=== PATIENT | female | born 1960 | race Caucasian/White ===

== ENCOUNTER 2019-04-07 07:59 | Outpatient (CLI) | payer MEDICARE, OTHER, SELFPAY ==
--- NOTE | 2019-04-07 08:19 | MM_ITS ---
WS: [id number] BILATERAL DIGITAL SCREENING MAMMOGRAM WITH CAD CLINICAL INFORMATION: SCREENING HISTORY: Screening mammogram. No current complaints. COMPARISON: February 20, 2018 TECHNIQUE: Bilateral CC and MLO views. FINDINGS: Fatty-replaced breasts bilaterally. Stable 11 mm intramammary lymph node upper outer right breast wit h a fatty hilum. No suspicious focal mass, asymmetry, calcifications, or architectural distortion. No evidence of malignancy. MM/[place] [id number] IMPRESSION: BI-RADS: 2-Benign FOLLOW UP: 1 Year Follow-up Recommend return to annual screening mammography.
== END 2019-04-07 08:00 | disposition home or self-care (01) ==
LOC: RADSHAW 08:04
PROVIDERS: Family Provider Family Medicine; Visit Provider Family Medicine
DX: Z12.31 Encounter for screening mammogram for malignant neoplasm of breast (principal)
CPT/HCPCS: 77067

== ENCOUNTER 2019-09-07 18:01 | Emergency (ER) | payer MEDICARE, OTHER, SELFPAY ==
[2019-09-07] VITALS (18 sets, daily range): BP systolic 145–183; BP diastolic 82–97; PULSE 110; RESP 18; TEMP 37; O2SAT 93–96; BMI 39.4
--- NOTE | 2019-09-07 18:05 | CTR_ITS ---
PROCEDURE INFORMATION: Exam: CT Cervical Spine Without Contrast Exam date and time: 09/07/2019 6:40 PM Age: 59 years old Clinical indication: Injury or trauma; Initial encounter; Blunt trauma; Patient HX: Pain after 5ft fall onto concrete TECHNIQUE: Imaging protocol: Computed tomography images of the cervical spine without contrast. Radiation optimization: All CT scans at this facility use at least one of these dose optimization techniques: automated exposure control; mA and/or kV adjustment per patient size (includes targeted exams where dose is matched to clinical indication); or iterative reconstruction. COMPARISON: CR Cervical Spine Flex/Ext [id number] 08/04/2015 10:10 AM FINDINGS: The vertebral bodies are normally aligned. There is no evidence of fracture or subluxation. The vertebral bodies are of normal height. There is disc space narrowing at C6-C7. The remaining disc spaces are well maintained. The prevertebral soft tissues and the predental space are unremarkable. There are mild degenerative changes of the facet joints and uncovertebral joints. There is no significant central stenosis. There is no evidence for epidural hematoma. The lung apices are clear. Carotid calcifications are noted. CT/CT cervical spin wo con* [id number] IMPRESSION: There is no evidence of fracture or subluxation. Radiation Dose CTDIVOL = (mGy): DLP = 620.89 (mGy-cm)
--- NOTE | 2019-09-07 18:05 | XR_ITS ---
WS: [id number] LEFT SHOULDER: 3 VIEW(S) TECHNIQUE: Internal and external rotation with Y view. HISTORY: injury COMPARISON: 06/30/2013 Seen best on the Y view is a double cortical line. There is mild osteophytic ridging around the humer al head. Mild narrowing of the AC joint and the glenohumeral joint. XR/XR shoulder LT min 2V* [id number] IMPRESSION: Minimally displaced fracture involving the humeral head.
--- NOTE | 2019-09-07 18:05 | CTR_ITS ---
PROCEDURE INFORMATION: Exam: CT Head Without Contrast Exam date and time: 09/07/2019 6:40 PM Age: 59 years old Clinical indication: Injury or trauma; Initial encounter; Blunt trauma (contusions or hematomas); Without loss of consciousness; Patient HX: L forehead hematoma and pain after 5ft fall onto concrete TECHNIQUE: Imaging protocol: Computed tomography of the head without contrast. Radiation optimization: All CT scans at this facility use at least one of these dose optimization techniques: automated exposure control; mA and/or kV adjustment per patient size (includes targeted exams where dose is matched to clinical indication); or iterative reconstruction. COMPARISON: No relevant prior studies available. FINDINGS: The ventricles, sulci and basilar cisterns are normal for the patient's stated age. There are mild areas of decreased attenuation in the periventricular white matter which is nonspecific but likely relates to small vessel ischemic change. There is no evidence for acute infarct. There is no evidence for mass. There is hemorrhage layering along the falx slightly to the right of midline measuring 4 mm. There also appears to be some hemorrhage layering along the right side of the tentorium. This does not cause any significant mass effect. No intraparenchymal hemorrhage is seen. There is no midline shift. The skull is intact. There is a left frontal scalp hematoma/laceration. The visualized paranasal sinuses are well aerated. There is atherosclerotic change of the cavernous carotid arteries. CT/CT head wo con* [id number] IMPRESSION: 1. Subdural hemorrhage layering along the falx with maximal thickness of 4 mm. There is also some subdural hemorrhage layering along the right side of the tentorium. This does not cause any significant mass effect. 2. No intraparenchymal hemorrhage. 3. Left frontal scalp hematoma/laceration. Radiation Dose CTDIVOL = (mGy): DLP = 915.96 (mGy-cm)
--- NOTE | 2019-09-07 18:05 | XR_ITS ---
WS: [id number] RIGHT HAND: 3 VIEW(S) TECHNIQUE: PA, oblique and lateral. HISTORY: injury COMPARISON: None available. No acute fracture or dislocation. No soft tissue or bone abnormality. Mild interphalangeal joint space narrowing. XR/XR hand RT min 3V* [id number] IMPRESSION: No acute fracture.
--- NOTE | 2019-09-07 18:08 | W.ED.FALL ---
HPI - Fall General: Chief Complaint: Fall Stated Complaint: fall from 5 feet Time Seen by Provider: 09/07/19 18:05 Source: patient and EMS Mode of arrival: EMS Limitations: no limitations History of Present Illness: HPI Narrative: 59-year-old female who was at a pool and states she was climbing up a ladder and fell roughly 4 feet onto concrete. She hit her head along with her left shoulder and knee. She complains of head neck pain along with left shoulder pain. She denies any loss of consciousness. She states her pain is a 4 out of 10. complaint: fall Onset (ago): minute(s) Fall from: from height (distance) Fall witnessed: yes, by family Place fall occurred: home Loss of consciousness: None Prolonged down time: no Symptoms prior to fall: none Context: tripped/slipped Location of injury: head and neck Associated symptoms-after fall: Reports headache(s) and neck pain; Denies abdominal pain or chest pain Review of Systems Const: Denies: fever(s), chills, body aches or change in appetite Eyes: Denies: blurry vision or eye discomfort ENMT: Denies: throat pain or dental pain Card: Denies: chest pain Resp: Denies: dyspnea GI: Denies: abdominal pain, nausea, vomiting or diarrhea : Denies: dysuria Musc: Reports: neck pain; Denies: back pain Skin/Breast: Denies: rash Neuro: Reports: headache(s) Psych: Denies: depression Kavon/Lymph: Denies: easy bruising All/Imm: Denies: urticaria PFSH ED PFSH: Medical History Anxiety Arthritis Depression Diabetes Elevation of cardiac enzymes Hypercholesterolemia Hypertension Obesity Palpitations with regular cardiac rhythm Precordial chest pain Surgical History H/O left knee surgery History of appendectomy History of endometrial ablation S/P dilatation and curettage Family History Other Diabetes Family history of premature coronary artery disease Hyperlipidemia Hypertension Social History Smoking and tobacco status: former smoker Alcohol intake: never Physical Exam Const: COMMON NORMALS: no acute distress, patient oriented x3 and healthy appearing HENMT: COMMON NORMALS: normocephalic HEAD & SCALP: normocephalic OTHER: Abrasion to left side of face and head. Eye: COMMON NORMALS: Equal, round and reactive pupils present and EOMs intact bilaterally PUPIL: Yes Equal, round and reactive pupils present Neck/C-Spine: COMMON NORMALS: full ROM and supple Chest: COMMONS NORMALS: normal inspection of the chest and normal palpation of entire chest wall Resp: COMMON NORMALS: normal respiratory effort, No retractions, No use of accessory muscles and clear to auscultation bilaterally AUSCULTATION: clear to auscultation bilaterally Cardio: COMMON NORMALS: regular rate, regular rhythm and No murmurs present (Cardio) RATE: regular rate RHYTHM: regular rhythm GI: COMMON NORMALS: Normal to inspection, nondistended, normoactive bowel sounds present, Soft to palpation, non-tender and no masses PALPATION: Yes Soft to palpation Extremity: COMMON NORMALS: normal to inspection and full ROM Neuro: COMMON NORMALS: patient oriented x3, moves all extremities and no focal motor deficits Psych: COMMON NORMALS: mental status grossly normal, Normal thought process present and cooperative THOUGHT PROCESS: Normal thought process present Skin: COMMON NORMALS: no rashes or lesions noted and no wounds GENERAL SKIN EXAM: no rashes or lesions noted Course Vital Signs: Vital signs: Vital Signs Temperature 98.6 F 09/07/19 18:07 Pulse Rate 110 H 09/07/19 18:07 Respiratory Rate 18 09/07/19 18:07 Blood Pressure 183/93 09/07/19 18:07 Pulse Oximetry 94 09/07/19 18:15 MDM - Fall MDM Narrative: Medical decision making narrative: Patient presents here with a subdural hemorrhage from a fall. Patient here is awake alert and has a GCS of 15. She has no other signs of injuries. I spoke to neurosurgeon Dr. Sanders at [facility] and will transfer there for higher level of care as we do not have neurosurgery on at this time. Patient has been stable while in the ER. Imaging Data^: CT Head: Radiologist's impression: [address] [address] [address] Scan Report Signed Patient: Sharon Villalpando Unit #: [id number] : 1960 [id number] Age/Sex: 59 / F ADM Date: 09/07/19 Loc: ER Room/Bed: Attending Dr: Ordering Provider/Ordering MD: Ly Whaley MD Date of Service: 09/07/19 Procedure(s): CT head wo con* [id number] Accession Number(s): [id number] Report Number: [id number] PROCEDURE INFORMATION: Exam: CT Head Without Contrast Exam date and time: 09/07/2019 6:40 PM Age: 59 years old Clinical indication: Injury or trauma; Initial encounter; Blunt trauma (contusions or hematomas); Without loss of consciousness; Patient HX: L forehead hematoma and pain after 5ft fall onto concrete TECHNIQUE: Imaging protocol: Computed tomography of the head without contrast. Radiation optimization: All CT scans at this facility use at least one of these dose optimization techniques: automated exposure control; mA and/or kV adjustment per patient size (includes targeted exams where dose is matched to clinical indication); or iterative reconstruction. COMPARISON: No relevant prior studies available. FINDINGS: The ventricles, sulci and basilar cisterns are normal for the patient's stated age. There are mild areas of decreased attenuation in the periventricular white matter which is nonspecific but likely relates to small vessel ischemic change. There is no evidence for acute infarct. There is no evidence for mass. There is hemorrhage layering along the falx slightly to the right of midline measuring 4 mm. There also appears to be some hemorrhage layering along the right side of the tentorium. This does not cause any significant mass effect. No intraparenchymal hemorrhage is seen. There is no midline shift. The skull is intact. There is a left frontal scalp hematoma/laceration. The visualized paranasal sinuses are well aerated. There is atherosclerotic change of the cavernous carotid arteries. CT/CT head wo con* [id number] IMPRESSION: 1. Subdural hemorrhage layering along the falx with maximal thickness of 4 mm. There is also some subdural hemorrhage layering along the right side of the tentorium. This does not cause any significant mass effect. 2. No intraparenchymal hemorrhage. 3. Left frontal scalp hematoma/laceration. ct c spine: Radiologist's impression: [place] [address] [address] [address] Scan Report Signed Patient: Sharon Villalpando Unit #: [id number] : 1960 Age/Sex: 59 / F ADM Date: 09/07/19 Loc: ER Room/Bed: Attending Dr: Ordering Provider/Ordering MD: Ly Whaley MD Date of Service: 09/07/19 Procedure(s): CT cervical spin wo con* [id number] Accession Number(s): [id number] Report Number: [id number] PROCEDURE INFORMATION: Exam: CT Cervical Spine Without Contrast Exam date and time: 09/07/2019 6:40 PM Age: 59 years old Clinical indication: Injury or trauma; Initial encounter; Blunt trauma; Patient HX: Pain after 5ft fall onto concrete TECHNIQUE: Imaging protocol: Computed tomography images of the cervical spine without contrast. Radiation optimization: All CT scans at this facility use at least one of these dose optimization techniques: automated exposure control; mA and/or kV adjustment per patient size (includes targeted exams where dose is matched to clinical indication); or iterative reconstruction. COMPARISON: CR Cervical Spine Flex/Ext [id number] 08/04/2015 10:10 AM FINDINGS: The vertebral bodies are normally aligned. There is no evidence of fracture or subluxation. The vertebral bodies are of normal height. There is disc space narrowing at C6-C7. The remaining disc spaces are well maintained. The prevertebral soft tissues and the predental space are unremarkable. There are mild degenerative changes of the facet joints and uncovertebral joints. There is no significant central stenosis. There is no evidence for epidural hematoma. The lung apices are clear. Carotid calcifications are noted. CT/CT cervical spin wo con* [id number] IMPRESSION: There is no evidence of fracture or subluxation. xr r hand: Attestation: I personally reviewed and interpreted this imaging study as follows: My impression: no acute abnormality xr shoulder L: Attestation: I personally reviewed and interpreted this imaging study as follows: My impression: no acute abnormality Critical Care Time Critical Care Time: Critical Care Time: Yes Total Critical Care Time: 36 Attestation: This case had a high probability of a clinically significant, sudden, or life threatening deterioration of this patient's condition which required my full and direct attention, intervention and personal management. Discharge Plan Discharge Patient Disposition: Xfer Other Clinical Impression: Subdural hemorrhage Condition: Stable Referrals: Pritesh Ritter DO [Primary Care Provider] - Interventions: ED Charges Last Done: 09/07/19 18:14 Coding Level of Care Code ED Gelatin Dynamite Packing Operator for Chg Fwd Exam Comprehensive
[2019-09-07] MEDS: HYDROcodone-acetaminophen 5-325 mg Tablet 1 TAB PO (19:39)
[2019-09-07] MEDS: labetalol 5 mg/mL SDV 20mL 10 MG IVP (19:44)
[2019-09-07 19:56] LABS: Basophils # 0.1 10^3/uL (0.0-0.1); Basophils % 0.5 %; Eosinophils # 0.3 10^3/uL (0.0-0.8); Eosinophils % 2.2 %; Hematocrit 41.3 % (37.0-47.0); Hemoglobin 13.6 g/dL (11.5-15.3); Lymphocytes % 15.3 %; Mean Corpuscular HGB Conc 32.9 g/dL (30.0-36.0); Mean Corpuscular Hemoglobin 29.8 pg (28.0-34.0); Mean Corpuscular Volume 90.4 fL (81-99); Mean Platelet Volume 9.4 fL (7.4-10.4); Monocytes # 0.6 10^3/uL (0.2-0.9); Monocytes % 4.7 %; Neutrophils # 9.8 10^3/uL (1.8-7.7); Neutrophils % 76.3 %; Nucleated Red Blood Cells % 0 %; Platelet Count 341 10^3/cmm (130-400); Red Blood Count 4.57 10^6/uL (4.1-5.3); Red Cell Distribution Width 12.4 % (12.1-15.1); White Blood Count 12.9 10^3/uL (4.0-10.0)
[2019-09-07 20:01] LABS: INR 0.86 (0.8-1.2)
[2019-09-07 20:07] LABS: Alanine Aminotransferase 24 U/L (0-33); Albumin Level 4.3 g/dL (3.5-5.2); Alkaline Phosphatase 57 IU/L (35-105); Anion Gap 19.1 (5-19); Aspartate Amino Transferase 22 U/L (0-32); Blood Urea Nitrogen 11 mg/dL (6-20); Calcium 9.9 mg/dL (8.5-10.5); Carbon Dioxide 23 mmol/L (22-29); Chloride 96 mmol/L (98-107); Creatinine Clr Calc Pharmacy 101.8412; Globulin 3.3 g/dL (1.3-4.6); Glomerular Filtration Rate 85.6 mL/min (90-130); Glucose 245 mg/dL (65-115); Osmolality Calculated 282 mOsm/kg (285-295); Potassium 4.1 mmol/L (3.5-5.1); Sodium 134 mmol/L (136-145); Total Bilirubin 0.2 mg/dL (0.15-1.2); Total Protein 7.6 g/dL (6.6-8.7)
--- NOTE | 2019-09-07 22:30 | PC.NURSE ---
EMS on site to assume care and transport to [facility].
== END 2019-09-07 22:30 | disposition other institution (70) ==
PROVIDERS: Emergency Provider Emergency Medicine; Family Provider Family Medicine; PCP Family Medicine
DX: S06.5X9A Traumatic subdural hemorrhage with loss of consciousness of unspecified duration, initial encounter (principal); W11.XXXA Fall on and from ladder, initial encounter; E11.9 Type 2 diabetes mellitus without complications; I10 Essential (primary) hypertension; Z87.891 Personal history of nicotine dependence
CPT/HCPCS: 12345; 36415; 70450; 72125; 73030; 73130; 80053; 85025; 85610; 96374; 99282; 99285; J3490

== ENCOUNTER 2019-09-25 13:28 | Outpatient (CLI) | payer MEDICARE, OTHER, SELFPAY ==
--- NOTE | 2019-09-25 13:36 | CT_ITS ---
WS: [id number] CT HEAD TECHNIQUE: Noncontrast CT of the head obtained from the skullbase to the vertex. CLINICAL INFORMATION: POST TRAUMATIC SUBDURAL HEMATOMA WITHOUT LOSS OF CONSCIOUSNE COMPARISON: September 07, 2019 DLP: 925.[address] scans at [facility] use at least one of these dose optimization techniques: automat ed exposure control; mA and/or kV adjustment per patient size (includes targeted exams where dose is matched to clinical indication); or iterative reconstruction. FINDINGS: Previously described subdural hematoma along the falx has resolved. Subdural hematoma along the right tentorium has also essentially resolved. No evidence of new or progressive hemorrhage. No hydrocepha yordan. Mild small vessel changes. Mild parenchymal volume loss. Paranasal sinuses and mastoid air cells are well aerated. CT/CT head wo con* [id number] IMPRESSION: 1. No evidence of intracranial hemorrhage or mass effect. 2. Previously described subdural hematoma along the falx and right tentorium h as resolved. 3. No acute intracranial findings.
== END 2019-09-25 13:29 | disposition home or self-care (01) ==
LOC: RADWPI 13:31
PROVIDERS: Family Provider Family Medicine; PCP Family Medicine; Visit Provider Nurse Practitioner Family
DX: S06.5X0A Traumatic subdural hemorrhage without loss of consciousness, initial encounter (principal); G44.319 Acute post-traumatic headache, not intractable; X58.XXXA Exposure to other specified factors, initial encounter
CPT/HCPCS: 70450

== ENCOUNTER 2019-09-26 06:43 | Emergency (ER) | payer MEDICARE, OTHER, SELFPAY ==
[2019-09-26] VITALS (43 sets, daily range): BP systolic 129–200; BP diastolic 72–98; PULSE 93–102; RESP 18; TEMP 37.2; O2SAT 94–97; BMI 39.4
--- NOTE | 2019-09-26 06:57 | W.ED.GENADLT ---
HPI - General Adult General: Chief complaint: General Medical Stated complaint: HIGH BP Time Seen by Provider: 09/26/19 06:45 History of Present Illness: HPI narrative: 59-year-old female who comes in complaining of elevated blood pressure felt hot and sweaty she is concerned because she recently had an intracranial hemorrhage she had a subdural after a fall there was no loss of consciousness. She was seen last night for recheck. Subdural hematoma had resolved the original was on September 06. He has no focal neurologic deficits this morning. The only medication [facility] blood pressure is candesartan. Blood pressure when she initially arrives here her blood pressure is down a little bit. Eyes any nausea vomiting or diarrhea no recent illness. Associated symptoms: Deny chest pain, dyspnea, malaise, nausea, rash or vomiting Review of Systems Const: Denies: fever(s), chills, body aches, change in appetite, fatigue or malaise ENMT: Denies: throat pain, ear or mastoid pain, nasal discharge or nasal congestion Card: Denies: chest pain, edema, dyspnea on exertion or orthopnea Resp: Denies: dyspnea, productive cough or non-productive cough GI: Denies: abdominal pain, nausea, vomiting, hematemesis, coffee ground emesis, diarrhea, constipation, bloating, hematochezia or melena : Denies: flank pain, difficulty voiding, dysuria, urinary frequency or urinary urgency Skin/Breast: Denies: rash or pruritus PFS ED PFSH: Medical History Anxiety Arthritis Depression Diabetes Elevation of cardiac enzymes Hypercholesterolemia Hypertension Obesity Palpitations with regular cardiac rhythm Precordial chest pain Surgical History H/O left knee surgery History of appendectomy History of endometrial ablation S/P dilatation and curettage Family History Other Diabetes Family history of premature coronary artery disease Hyperlipidemia Hypertension Social History Smoking and tobacco status: former smoker Alcohol intake: never Physical Exam Const: COMMON NORMALS: no acute distress GENERAL APPEARANCE: cooperative and comfortable ORIENTATION/CONSCIOUSNESS: Yes awake, Yes oriented to person, Yes oriented to place and Yes oriented to time HENMT: COMMON NORMALS: normocephalic, atraumatic, hearing grossly normal bilaterally, external ears normal, EAC's normal, TM's normal bilaterally, Normal nasal mucous membranes and turbinates present, moist oral mucous membranes and oropharynx normal HEAD & SCALP: normocephalic and atraumatic NOSE: Normal nasal mucous membranes and turbinates present EXTERNAL EAR: Yes external ears normal EXTERNAL AUDITORY CANAL: EAC's normal TYMPANIC MEMBRANE: TM's normal bilaterally Eye: COMMON NORMALS: Equal, round and reactive pupils present, EOMs intact bilaterally, conjunctivae normal and no scleral icterus CONJUNCTIVA: Yes conjunctivae normal PUPIL: Yes Equal, round and reactive pupils present Neck/C-Spine: COMMON NORMALS: full ROM, no lymphadenopathy, supple and no JVD Lymph: LYMPHATIC: no lymphadenopathy noted and no lymphedema noted Resp: COMMON NORMALS: normal respiratory effort, No retractions, No use of accessory muscles and clear to auscultation bilaterally AUSCULTATION: clear to auscultation bilaterally Cardio: COMMON NORMALS: no JVD, regular rate, regular rhythm and No murmurs present (Cardio) RATE: regular rate RHYTHM: regular rhythm GI: COMMON NORMALS: Soft to palpation and No hepatosplenomegaly present AUSCULTATION: Yes normoactive bowel sounds PALPATION: Yes Soft to palpation, No Tenderness to palpation present (GI), No Guarding due to palpation present (GI) and Yes No hepatosplenomegaly present Extremity: COMMON NORMALS: normal to inspection, capillary refill normal, no clubbing, cyanosis or edema, no calf tenderness and no pedal edema Neuro: SENSORIUM/ORIENTATION: Yes oriented to person, Yes oriented to place and Yes oriented to time Skin: COMMON NORMALS: no rashes or lesions noted GENERAL SKIN EXAM: no rashes or lesions noted Course Vital Signs: Vital signs: Vital Signs Temperature 98.9 F 09/26/19 06:52 Pulse Rate 93 09/26/19 12:07 Respiratory Rate 18 09/26/19 12:07 Blood Pressure 132/74 09/26/19 12:07 Pulse Oximetry 95 09/26/19 12:07 MDM - General Adult MDM Narrative: Medical decision making narrative: CT of the head unremarkable blood pressure improved. We will add amlodipine. She needs follow-up with primary care doctor the next 2 days return if has any further problems Lab Data: Attestation: I reviewed the patient's lab results. Labs: Lab Results 09/26/19 09/26/19 Range/Units 07:14 07:14 WBC 10.6 H (4.0-10.0) 10^3/ uL RBC 4.50 (4.1-5.3) 10^6/u L Hgb 13.2 (11.5-15.3) g/dL Hct 40.1 (37.0-47.0) % MCV 89.1 (81-99) fL MCH 29.3 (28.0-34.0) pg MCHC 32.9 (30.0-36.0) g/dL RDW 12.2 (12.1-15.1) % Plt Count 348 (130-400) 10^3/c mm MPV 9.5 (7.4-10.4) fL Neut % (Auto) 71.4 % Lymph % (Auto) 19.4 % Bill[place] % (Auto) 5.5 % Eos % (Auto) 2.2 % Baso % (Auto) 0.8 % Neut # (Auto) 7.6 (1.8-7.7) 10^3/u L Lymph # (Auto) 2.1 (0.8-4.8) 10^3/u L Billings # (Auto) 0.6 (0.2-0.9) 10^3/u L Eos # (Auto) 0.2 (0.0-0.8) 10^3/u L Baso # (Auto) 0.1 (0.0-0.1) 10^3/u L Nucleated RBC % (a uto) 0 % Nucleated RBCs # 0.0 /100WBC Sodium 135 L (136-145) mmol/L Potassium 4.5 (3.5-5.1) mmol/L Chloride 95 L (98-107) mmol/L Carbon Dioxide 26 (22-29) mmol/L Anion Gap 18.5 (5-19) BUN 16 (6-20) mg/dL Creatinine 0.7 (0.5-0.9) mg/dL GFR Calculation 85.6 L (90-130) mL/min Glucose 188 H (65-115) mg/dL Calculated Osmolal ity 281 L (285-295) mOsm/k g Calcium 9.5 (8.5-10.5) mg/dL Total Bilirubin 0.3 (0.15-1.2) mg/dL AST 23 (0-32) U/L ALT 25 (0-33) U/L Alkaline Phosphata se 56 (35-105) IU/L Total Protein 7.0 (6.6-8.7) g/dL Albumin 4.4 (3.5-5.2) g/dL Globulin 2.6 (1.3-4.6) g/dL Discharge Plan Discharge Patient Disposition: Home, Self-Care Clinical Impression: Hypertension Condition: Stable Prescriptions: New amlodipine 10 mg tablet 10 mg PO DAILY Qty: 30 RF: 0 No Action atorvastatin [Lipitor] 40 mg tablet 40 mg PO DAILY RF: 0 citalopram 40 mg tablet 40 mg PO DAILY RF: 0 alprazolam 0.25 mg tablet 0.25 mg PO TID PRN (Reason: Anxiety) RF: 0 metformin 500 mg tablet 1,000 mg PO BID RF: 0 candesartan 16 mg tablet 24 mg PO DAILY RF: 0 lysine 500 mg Tablet 500 mg PO DAILY RF: 0 Fioricet 50-300-40 mg Capsule 1 cap PO Q6H PRN (Reason: Headache) RF: 0 Discharge Orders: Discharge Order (Routine); Ordered 09/26/19 Ordered By: Yan Nguyễn Referrals: Pritesh Ritter DO [Primary Care Provider] - Discharge Diet: Usual diet Discharge Activity: Increase activity as tolerated Activity Restrictions/Additional Instructions: Follow-up with Dr. Chavez within 1 week to reevaluate blood pressure with additional medication you were given today Discharge Date/Time: 09/26/19 12:10 Coding Level of Care Code ED Log Cut Off Sawyer for Chg Fwd Exam Comprehensive
--- NOTE | 2019-09-26 06:59 | ECG_ITS ---
[facility] Test Date: 2019-09-26 Pat Name: Sharon Villalpando Department: Room: Gender: Female Eng[employer]: : 1960 Requested By: Yan Rogers Order Number: [id number] Edward MD: Jay Alanis M.D. Measurements Intervals Omega Rate: 88 P: 66 IA: 136 QRS: 37 QRSD: 73 T: 55 QT: 351 QTc: 426 Interpretive Statements SINUS RHYTHM Compared to ECG 02/14/2019 17:21:36 No significant changes Electronically Signed On 09-26-2019 21:51:16 CDT by Jay Alanis M.D. [id number]
[2019-09-26] MEDS: amlodipine 5 mg Tablet PO (07:19)
[2019-09-26] MEDS: hyDRALAzine 20 mg/mL INJ 1 mL 10 MG IVP (07:20)
[2019-09-26 07:22] LABS: Basophils # 0.1 10^3/uL (0.0-0.1); Basophils % 0.8 %; Eosinophils # 0.2 10^3/uL (0.0-0.8); Eosinophils % 2.2 %; Hematocrit 40.1 % (37.0-47.0); Hemoglobin 13.2 g/dL (11.5-15.3); Lymphocytes # 2.1 10^3/uL (0.8-4.8); Lymphocytes % 19.4 %; Mean Corpuscular HGB Conc 32.9 g/dL (30.0-36.0); Mean Corpuscular Hemoglobin 29.3 pg (28.0-34.0); Mean Corpuscular Volume 89.1 fL (81-99); Mean Platelet Volume 9.5 fL (7.4-10.4); Monocytes # 0.6 10^3/uL (0.2-0.9); Monocytes % 5.5 %; Neutrophils # 7.6 10^3/uL (1.8-7.7); Neutrophils % 71.4 %; Nucleated Red Blood Cells % 0 %; Platelet Count 348 10^3/cmm (130-400); Red Cell Distribution Width 12.2 % (12.1-15.1); White Blood Count 10.6 10^3/uL (4.0-10.0)
[2019-09-26 07:41] LABS: Alanine Aminotransferase 25 U/L (0-33); Albumin Level 4.4 g/dL (3.5-5.2); Alkaline Phosphatase 56 IU/L (35-105); Anion Gap 18.5 (5-19); Aspartate Amino Transferase 23 U/L (0-32); Blood Urea Nitrogen 16 mg/dL (6-20); Calcium 9.5 mg/dL (8.5-10.5); Carbon Dioxide 26 mmol/L (22-29); Chloride 95 mmol/L (98-107); Creatinine Clr Calc Pharmacy 101.8412; Globulin 2.6 g/dL (1.3-4.6); Glomerular Filtration Rate 85.6 mL/min (90-130); Glucose 188 mg/dL (65-115); Osmolality Calculated 281 mOsm/kg (285-295); Potassium 4.5 mmol/L (3.5-5.1); Sodium 135 mmol/L (136-145); Total Bilirubin 0.3 mg/dL (0.15-1.2)
== END 2019-09-26 12:10 | disposition home or self-care (01) ==
PROVIDERS: Emergency Provider Family Medicine; PCP Family Medicine
DX: I10 Essential (primary) hypertension (principal); E11.9 Type 2 diabetes mellitus without complications; Z87.891 Personal history of nicotine dependence
CPT/HCPCS: 12345; 80053; 85025; 93005; 96374; 96375; 99284; J0360

== ENCOUNTER → 2020-02-19 08:19 | Outpatient (BNVA) | payer MEDICARE, OTHER, SELFPAY | PROVIDERS: PCP Family Medicine; Visit Provider Specialist | DX: M16.11 Unilateral primary osteoarthritis, right hip (principal) | CPT/HCPCS: 73502 ==

== ENCOUNTER → 2020-03-09 09:27 | Outpatient (BNVA) | payer MEDICARE, OTHER, SELFPAY | PROVIDERS: PCP Family Medicine; Referring Provider Specialist; Visit Provider Anesthesiology Pain Medicine | DX: M54.9 Dorsalgia, unspecified (principal); M16.11 Unilateral primary osteoarthritis, right hip; M24.152 Other articular cartilage disorders, left hip; Z87.891 Personal history of nicotine dependence | CPT/HCPCS: 99205 ==

== ENCOUNTER → 2020-03-22 14:08 | Outpatient (BNVA) | payer MEDICARE, OTHER, SELFPAY | PROVIDERS: PCP Family Medicine; Visit Provider Anesthesiology Pain Medicine | DX: M16.11 Unilateral primary osteoarthritis, right hip (principal); E11.9 Type 2 diabetes mellitus without complications; M54.9 Dorsalgia, unspecified | CPT/HCPCS: 20610; 36416; 77002; 82962; J1030; J3490 ==

== ENCOUNTER 2020-04-08 07:35 | Outpatient (CLI) | payer MEDICARE, OTHER, SELFPAY ==
--- NOTE | 2020-04-08 07:40 | MM_ITS ---
WS: [id number] BILATERAL DIGITAL SCREENING MAMMOGRAM WITH CAD CLINICAL INFORMATION: SCREENING HISTORY: Screening mammogram. No current complaints. COMPARISON: April 07, 2019 TECHNIQUE: Bilateral CC and MLO views. FINDINGS: Fatty-replaced breasts bilaterally. No suspicious focal mass, asymmetry, calcifications, or principal solutions architect ural distortion. No evidence of malignancy. Stable intramammary lymph node upper outer right breast. MM/[place] [id number] IMPRESSION: BI-RADS: 2-Benign FOLLOW UP: 1 Year Follow-up Recommend return to annual screening mammography.
== END 2020-04-08 07:36 | disposition home or self-care (01) ==
LOC: RADSHAW 07:39
PROVIDERS: PCP Family Medicine; Visit Provider Family Medicine
DX: Z12.31 Encounter for screening mammogram for malignant neoplasm of breast (principal)
CPT/HCPCS: 77067

== ENCOUNTER → 2020-04-20 09:04 | Outpatient (BNVA) | payer MEDICARE, OTHER, SELFPAY | PROVIDERS: PCP Family Medicine; Visit Provider Anesthesiology Pain Medicine | DX: M54.9 Dorsalgia, unspecified (principal); M16.11 Unilateral primary osteoarthritis, right hip; M24.152 Other articular cartilage disorders, left hip; M47.816 Spondylosis without myelopathy or radiculopathy, lumbar region | CPT/HCPCS: 99214 ==

== ENCOUNTER → 2020-04-30 13:10 | Outpatient (BNVA) | payer MEDICARE, OTHER, SELFPAY | PROVIDERS: PCP Family Medicine; Visit Provider Anesthesiology Pain Medicine | DX: M47.816 Spondylosis without myelopathy or radiculopathy, lumbar region (principal); M54.9 Dorsalgia, unspecified | CPT/HCPCS: 64493; 64494; 64495; J3490 ==

== ENCOUNTER → 2020-05-26 08:47 | Outpatient (BNVA) | payer MEDICARE, OTHER, SELFPAY | PROVIDERS: PCP Family Medicine; Visit Provider Anesthesiology Pain Medicine | DX: M47.816 Spondylosis without myelopathy or radiculopathy, lumbar region (principal); M54.9 Dorsalgia, unspecified; M16.11 Unilateral primary osteoarthritis, right hip; M24.152 Other articular cartilage disorders, left hip | CPT/HCPCS: 99214 ==

== ENCOUNTER 2020-06-17 13:26 | Outpatient (CLI) | payer MEDICARE, OTHER, SELFPAY ==
--- NOTE | 2020-06-17 14:15 | USCV_ITS ---
Sharon Villalpando Age: 59 Gender: F : 1960 Exam Date: 06/17/2020 13:40 Ordering Phys: Delmi Venegas MD ([email or web address] ([place] Technologist: Ju Piedra Exam Location: [facility] [place] Indication: DIZZINESS Risk Factors: Previous Vascular Surgery: Right Brachial BP: / Left Brachial BP: / Right Left Velocity (cm/s) Spectral Plaque Velocity (cm/s) Spectral Plaque Syst/Diast Broadening Syst/Diast Broadening 94.80/ 22.10 Prox CCA 80.70 / 23.40 83.70/ 24.80 Mid CCA 92.10 / 35.30 59.60/ 18.40 Distal CCA 84.60 / 31.00 67.40/ 21.40 Prox ICA 78.10 / 27.80 65.30/ 16.10 Mid ICA 94.20 / 33.20 62.10/ 16.10 Distal ICA 79.70 / 29.50 107.00 ECA 97.40 0.81 ICA/CCA 1.02 Antegrade Vertebral Antegrade 49.00/ 9.80 cm/s 23.60/ 4.50 cm/s Tri Subclavian Tri 82.20 84.00 FINDINGS Intimal thickening the common carotid arteries bilaterally Minimal plaques in the bifurcations bilaterally Antegrade flow in the vertebral arteries bilaterally Normal Doppler flow velocities in the subclavian arteries bilaterally CONCLUSIONS Minimal plaques in the bifurcations bilaterally. Intimal thickening in the common carotid arteries bilaterally No significant stenosis or unstable plaques based on the above findings Dr Delmi Venegas MD [facility] (Electronically Signed) Final Date: 17 June 2020 20:15 S
== END 2020-06-17 13:27 | disposition home or self-care (01) ==
LOC: US 13:26
PROVIDERS: PCP Family Medicine; Visit Provider Internal Medicine Cardiovascular Disease
DX: R42 Dizziness and giddiness (principal); I65.23 Occlusion and stenosis of bilateral carotid arteries
CPT/HCPCS: 93880

== ENCOUNTER 2021-05-11 09:19 | Outpatient (CLI) | payer MEDICARE, SELFPAY ==
--- NOTE | 2021-05-11 09:32 | MM_ITS ---
WS: [id number] SCREENING DIGITAL MAMMOGRAM WITH CAD HISTORY: SCREENING COMPARISON: 04/08/2020 and 04/07/2019 Bilateral CC and MLO views submitted. Computer aided detection analyzed. Breast composition: The breasts are almost entirely fatty. No suspicious masses, microcalcifications or architectural distortion. Benign lymph node upper outer quadrant RIGHT breast. MM/[place] [id number] IMPRESSION: BI-RADS: 2-Benign FOLLOW UP: 1 Year Follow-up
== END 2021-05-11 09:20 | disposition home or self-care (01) ==
PROVIDERS: PCP Family Medicine; Visit Provider Family Medicine
DX: Z12.31 Encounter for screening mammogram for malignant neoplasm of breast (principal)
CPT/HCPCS: 77067

== ENCOUNTER → 2021-09-14 15:36 | Outpatient (BNVA) | payer MEDICARE, SELFPAY | PROVIDERS: PCP Family Medicine; Visit Provider Family Medicine | DX: E11.9 Type 2 diabetes mellitus without complications (principal); I10 Essential (primary) hypertension; E53.9 Vitamin B deficiency, unspecified | CPT/HCPCS: 80053; 80061; 82607; 83036; 85025 ==

== ENCOUNTER 2022-05-19 07:12 | Outpatient (CLI) | payer MEDICARE, SELFPAY ==
--- NOTE | 2022-05-19 07:27 | MM_ITS ---
WS: [id number] BILATERAL SCREENING DIGITAL TOMOSYNTHESIS MAMMOGRAM WITH CAD HISTORY: SCREENING COMPARISON: 05/11/2021, 04/08/2020 Bilateral CC and MLO views with tomosynthesis and synthetic mammography submitted. Computer aided det ection analyzed. Breast composition: The breasts are almost entirely fatty. No suspicious masses, microcalcifications or architectural distortion. Benign RIGHT axillary tail lymph node. MM/[id number] IMPRESSION: BI-RADS: 2-Benign FOLLOW UP: 1 Year Follow-up
== END 2022-05-19 07:13 | disposition home or self-care (01) ==
LOC: RAD 07:18
PROVIDERS: PCP Family Medicine; Visit Provider Family Medicine
DX: Z12.31 Encounter for screening mammogram for malignant neoplasm of breast (principal)
CPT/HCPCS: 77063; 77067

== ENCOUNTER → 2022-05-23 08:36 | Outpatient (BNVA) | payer MEDICARE, SELFPAY | PROVIDERS: PCP Family Medicine; Visit Provider Clinical Nurse Specialist Adult Health | DX: E11.9 Type 2 diabetes mellitus without complications (principal); I10 Essential (primary) hypertension | CPT/HCPCS: 80053; 80061; 83036; 85025 ==

== ENCOUNTER → 2022-09-05 09:23 | Outpatient (BNVA) | payer MEDICARE, SELFPAY | PROVIDERS: PCP Clinical Nurse Specialist Adult Health; Visit Provider Clinical Nurse Specialist Adult Health | DX: E11.9 Type 2 diabetes mellitus without complications (principal) | CPT/HCPCS: 80053; 80061; 83036; 85025 ==

== ENCOUNTER → 2022-09-25 08:53 | Outpatient (BNVA) | payer MEDICARE, SELFPAY | PROVIDERS: PCP Clinical Nurse Specialist Adult Health; Visit Provider Student in an Organized Health Care Education/Training Program | DX: M24.152 Other articular cartilage disorders, left hip (principal); M16.11 Unilateral primary osteoarthritis, right hip; E11.9 Type 2 diabetes mellitus without complications; Z79.84 Long term (current) use of oral hypoglycemic drugs | CPT/HCPCS: 73522; 99204 ==

== ENCOUNTER → 2022-10-06 10:33 | Outpatient (BNVA) | payer MEDICARE, SELFPAY | PROVIDERS: PCP Clinical Nurse Specialist Adult Health; Visit Provider Internal Medicine Cardiovascular Disease | DX: E11.9 Type 2 diabetes mellitus without complications (principal); Z79.84 Long term (current) use of oral hypoglycemic drugs; R00.2 Palpitations; E78.00 Pure hypercholesterolemia, unspecified; R07.2 Precordial pain; I10 Essential (primary) hypertension; Z87.891 Personal history of nicotine dependence | CPT/HCPCS: 99213 ==

== ENCOUNTER → 2022-10-27 06:57 | Outpatient (BNVA) | payer MEDICARE, SELFPAY | PROVIDERS: PCP Clinical Nurse Specialist Adult Health; Visit Provider Student in an Organized Health Care Education/Training Program | DX: M16.12 Unilateral primary osteoarthritis, left hip (principal) | CPT/HCPCS: 20610; 77002; 99213; J3301 ==

== ENCOUNTER → 2022-12-05 09:26 | Outpatient (BNVA) | payer MEDICARE, SELFPAY | PROVIDERS: PCP Clinical Nurse Specialist Adult Health; Visit Provider Clinical Nurse Specialist Adult Health | DX: E11.9 Type 2 diabetes mellitus without complications (principal) | CPT/HCPCS: 80053; 80061; 83036; 85025 ==

== ENCOUNTER → 2022-12-28 08:12 | Outpatient (BNVA) | payer MEDICARE, SELFPAY | PROVIDERS: PCP Clinical Nurse Specialist Adult Health; Visit Provider Podiatrist Foot & Ankle Surgery | DX: L60.3 Nail dystrophy (principal); E11.40 Type 2 diabetes mellitus with diabetic neuropathy, unspecified; L60.8 Other nail disorders; L84 Corns and callosities; M21.612 Bunion of left foot; M21.611 Bunion of right foot; Z79.84 Long term (current) use of oral hypoglycemic drugs | CPT/HCPCS: 11055; 11721; 99203 ==

== ENCOUNTER → 2023-01-15 14:00 | Outpatient (BNVA) | payer MEDICARE, SELFPAY | PROVIDERS: PCP Clinical Nurse Specialist Adult Health; Visit Provider Student in an Organized Health Care Education/Training Program | DX: M16.11 Unilateral primary osteoarthritis, right hip (principal) | CPT/HCPCS: 99213 ==

== ENCOUNTER → 2023-04-10 08:30 | Outpatient (BNVA) | payer MEDICARE, SELFPAY | PROVIDERS: PCP Clinical Nurse Specialist Adult Health; Visit Provider Podiatrist Foot & Ankle Surgery | DX: E11.8 Type 2 diabetes mellitus with unspecified complications (principal); L60.3 Nail dystrophy; E11.40 Type 2 diabetes mellitus with diabetic neuropathy, unspecified; L60.8 Other nail disorders; L84 Corns and callosities; M21.612 Bunion of left foot; M21.611 Bunion of right foot | CPT/HCPCS: 11055; 11721 ==

== ENCOUNTER → 2023-04-13 07:49 | Outpatient (BNVA) | payer MEDICARE, SELFPAY | PROVIDERS: PCP Clinical Nurse Specialist Adult Health; Visit Provider Student in an Organized Health Care Education/Training Program | DX: M16.11 Unilateral primary osteoarthritis, right hip (principal) | CPT/HCPCS: 20610; 77002; 99213; J3301 ==

== ENCOUNTER → 2023-04-17 13:52 | Outpatient (BNVA) | payer MEDICARE, SELFPAY | PROVIDERS: PCP Clinical Nurse Specialist Adult Health; Visit Provider Internal Medicine Cardiovascular Disease | DX: I95.1 Orthostatic hypotension (principal); I10 Essential (primary) hypertension; E78.00 Pure hypercholesterolemia, unspecified; E11.9 Type 2 diabetes mellitus without complications; Z87.891 Personal history of nicotine dependence; Z79.84 Long term (current) use of oral hypoglycemic drugs | CPT/HCPCS: 99214 ==

== ENCOUNTER → 2023-05-10 10:35 | Outpatient (BNVA) | payer MEDICARE, SELFPAY | PROVIDERS: PCP Clinical Nurse Specialist Adult Health; Visit Provider Clinical Nurse Specialist Adult Health | DX: E78.00 Pure hypercholesterolemia, unspecified (principal); E11.9 Type 2 diabetes mellitus without complications; I10 Essential (primary) hypertension | CPT/HCPCS: 80053; 80061; 83036; 85025 ==

== ENCOUNTER 2023-05-21 08:45 | Outpatient (CLI) | payer MEDICARE, SELFPAY ==
--- NOTE | 2023-05-21 08:59 | MM_ITS ---
WS: [id number] SCREENING DIGITAL TOMOSYNTHESIS MAMMOGRAM WITH CAD HISTORY: screening COMPARISON: 05/19/2022, 05/11/2021 and 04/08/2020 Bilateral CC and MLO with tomosynthesis views submitted. Synthetic mammography reviewed. Computer aid ed detection analyzed. Breast composition: The breasts are almost entirely fatty. No suspicious masses, microcalcifications or architectural distortion. RIGHT axillary tail lymph node. IMPRESSION: MM/[id number] BI-RADS: 2-Benign FOLLOW UP: 1 Year Follow-up
== END 2023-05-21 08:46 | disposition home or self-care (01) ==
PROVIDERS: PCP Clinical Nurse Specialist Adult Health; Visit Provider Clinical Nurse Specialist Adult Health
DX: Z12.31 Encounter for screening mammogram for malignant neoplasm of breast (principal)
CPT/HCPCS: 77063; 77067

== ENCOUNTER → 2023-07-10 07:53 | Outpatient (BNVA) | payer MEDICARE, SELFPAY | PROVIDERS: PCP Clinical Nurse Specialist Adult Health; Visit Provider Podiatrist Foot & Ankle Surgery | DX: E11.8 Type 2 diabetes mellitus with unspecified complications (principal); B35.1 Tinea unguium; L60.3 Nail dystrophy; E11.40 Type 2 diabetes mellitus with diabetic neuropathy, unspecified; L60.8 Other nail disorders; M21.619 Bunion of unspecified foot; L84 Corns and callosities; M21.611 Bunion of right foot; M21.612 Bunion of left foot; Z79.84 Long term (current) use of oral hypoglycemic drugs | CPT/HCPCS: 11055; 99213 ==

== ENCOUNTER → 2023-07-17 08:26 | Outpatient (BNVA) | payer MEDICARE, SELFPAY | PROVIDERS: PCP Clinical Nurse Specialist Adult Health; Visit Provider Student in an Organized Health Care Education/Training Program | DX: M16.11 Unilateral primary osteoarthritis, right hip; M47.816 Spondylosis without myelopathy or radiculopathy, lumbar region | CPT/HCPCS: 99213 ==

== ENCOUNTER → 2023-07-31 14:59 | Outpatient (BNVA) | payer MEDICARE, SELFPAY | PROVIDERS: PCP Clinical Nurse Specialist Adult Health; Visit Provider Orthopaedic Surgery | DX: M47.816 Spondylosis without myelopathy or radiculopathy, lumbar region (principal); M48.062 Spinal stenosis, lumbar region with neurogenic claudication | CPT/HCPCS: 72110; 99204 ==

== ENCOUNTER → 2023-08-07 09:18 | Outpatient (BNVA) | payer MEDICARE, SELFPAY | PROVIDERS: PCP Clinical Nurse Specialist Adult Health; Visit Provider Clinical Nurse Specialist Adult Health | DX: E11.9 Type 2 diabetes mellitus without complications (principal); Z00.01 Encounter for general adult medical examination with abnormal findings; I95.1 Orthostatic hypotension | CPT/HCPCS: 80053; 83036 ==

== ENCOUNTER → 2023-08-17 07:46 | Outpatient (BNVA) | payer MEDICARE, SELFPAY | PROVIDERS: PCP Clinical Nurse Specialist Adult Health; Visit Provider Student in an Organized Health Care Education/Training Program | DX: M16.11 Unilateral primary osteoarthritis, right hip (principal) | CPT/HCPCS: 20610; 77002; 99213; J3301 ==

== ENCOUNTER 2023-08-21 07:06 | Outpatient (CLI) | payer MEDICARE, SELFPAY ==
--- NOTE | 2023-08-21 07:15 | MR_ITS ---
WS: [id number] MRI LUMBAR SPINE WITH CONTRAST TECHNIQUE: Sagittal T1, T2 and STIR imaging. Axial T1 and T2 imaging. Post gadolinium imaging was obt ained. CLINICAL INFORMATION: Back Pain COMPARISON: MRI 2016 FINDINGS: Mild lumbar curve. No acute compression. Mild disc bulging worse at L1-2 and L2-3. L1-L2: Mild disc bulging. Narrowing of the RIGHT subarticular recess. Mild facet arthropathy. Spinal canal and foramen are patent. L2-L3: Mild annular bulging. Slight narrowing of the RIGHT subarticular recess. Small RIGHT foraminal protrusion with mild RIGHT foraminal narrowing. Moderate facet arthropathy. L3-L4: No significant disc bulging. Mild facet arthropathy. Spinal canal and foramen are patent. L4-L5: Mild annular bulging. Moderate facet arthropathy. Spinal canal and foramen are patent. L5-S1: Minimal disc bulging. Slight narrowing of the LEFT subarticular recess. Mild LEFT foraminal na rrowing. Moderate facet arthropathy. No abnormal gadolinium enhancement. Few small disc protrusions in the midthoracic spine. Visualized pelvic bony structures: Normal. Paravertebral soft tissues: Normal. MR/MR lumbar spine wo/w con [id number] IMPRESSION: 1. Mild lumbar curve. No acute compression. No high-grade central canal stenos is. 2. Disc bulging L1-2 with narrowing of the RIGHT subarticular recess similar t o previous. 3. Mild disc bulging L2-3 with a small RIGHT foraminal protrusion and mild RIG HT foraminal narrowing. This is new compared to previous. 4. Slight narrowing of the LEFT L5-S1 subarticular recess with slight crowding of the LEFT S1 nerve root. Mild LEFT foraminal narrowing. 5. Moderate facet arthropathy L4-L5 and L5-S1.
[2023-08-21] MEDS: gadobenate dimeglumine 20 mL vial IV (07:50)
== END 2023-08-21 07:07 | disposition home or self-care (01) ==
LOC: RAD 07:06
PROVIDERS: PCP Clinical Nurse Specialist Adult Health; Visit Provider Orthopaedic Surgery
DX: M51.26 Other intervertebral disc displacement, lumbar region (principal); M51.36 Other intervertebral disc degeneration, lumbar region; M99.63 Osseous and subluxation stenosis of intervertebral foramina of lumbar region; M47.896 Other spondylosis, lumbar region; M47.892 Other spondylosis, cervical region
CPT/HCPCS: 72158; A9577

== ENCOUNTER → 2023-08-22 08:33 | Outpatient (BNVA) | payer MEDICARE, SELFPAY | PROVIDERS: PCP Clinical Nurse Specialist Adult Health; Visit Provider Podiatrist Foot & Ankle Surgery | DX: E11.40 Type 2 diabetes mellitus with diabetic neuropathy, unspecified (principal); L60.3 Nail dystrophy; B35.1 Tinea unguium; Z79.84 Long term (current) use of oral hypoglycemic drugs | CPT/HCPCS: 99213 ==

== ENCOUNTER 2023-08-27 08:38 | Emergency (ER) | payer MEDICARE, SELFPAY ==
[2023-08-27 08:54] VITALS: PULSE 78; RESP 16; TEMP 36.9; O2SAT 98; BMI 35.2
--- NOTE | 2023-08-27 08:58 | ED_ITS ---
HPI - Skin/Abscess/Foreign Bdy General: Chief complaint: Skin/Abscess/Foreign Body Stated complaint: rash Time Seen by Provider: 08/27/23 08:50 History of Present Illness: 73-year-old female who presents the [facility] room with a rash. Says it started 2 days ago. No known new exposures. She says she has been on a antifungal for 6 weeks. She had an MRI with contrast about 6 days ago. She says she has some redness and pain in her mouth. Also some pain and redness of her palms. The rash is primarily on her torso. Maculopapular lesions. No shortness of breath. No chest pain. Review of Systems Narrative: Constitutional symptoms: Negative except as documented in HPI. Skin symptoms: Negative except as documented in HPI. Eye symptoms: Negative except as documented in HPI. ENMT symptoms: Negative except as documented in HPI. Respiratory symptoms: Negative except as documented in HPI. Cardiovascular symptoms: Negative except as documented in HPI. Gastrointestinal symptoms: Negative except as documented in HPI. Genitourinary symptoms: Negative except as documented in HPI. Musculoskeletal symptoms: Negative except as documented in HPI. Neurologic symptoms: Negative except as documented in HPI. Psychiatric symptoms: Negative except as documented in HPI. Endocrine symptoms: Negative except as documented in HPI. [facility] ED PFSH: Medical History Diabetes Hypertension Hypercholesterolemia Anxiety Depression Obesity Arthritis Herpes labialis Eczema Palpitations with regular cardiac rhythm Elevation of cardiac enzymes Surgical History History of appendectomy S/P dilatation and curettage History of endometrial ablation H/O left knee surgery Family History Mother CAD (coronary artery disease) Cancer Dementia Lung disease Father CAD (coronary artery disease) Diabetes Son CAD (coronary artery disease) Other Family history of premature coronary artery disease Hyperlipidemia Hypertension Denies family history of Clotting disorder Chronic kidney disease (CKD) Suicide Anesthesia complication Bleeding disorder Stroke Social History Smoking and tobacco/nicotine status: former use of tobacco/nicotine Alcohol intake: never Substance/Drug Use: never Caregiver/support person: Yes Lives independently: Yes Physical Exam Narrative: EXAM NARRATIVE: General: Alert, no acute distress. Skin: warm and dry, maculopapular lesions around her torso below her breasts. Head: Normocephalic Neck: Trachea midline Eye: Extraocular movements are intact. Ears, nose, mouth and throat: Oral mucosa moist, some mild erythema. Respiratory: Respirations are non-labored Musculoskeletal: Normal ROM Neurological: Alert and oriented, No focal neurological deficit observed. Psychiatric: Cooperative, appropriate mood & affect. Course Vital Signs: Vital signs: Vital Signs Temperature 98.4 F 08/27/23 08:54 Pulse Rate 78 08/27/23 08:54 Respiratory Rate 16 08/27/23 08:54 Pulse Oximetry 98 08/27/23 08:54 MDM - Skin/Abscess/Foreign Bdy Medicial Decision Making Assessment and plan: Allergic reaction Rash - Discharged home - Discussed plan with patient. Answered any questions. - Evaluation and treatment of this problem were appropriate in the emergency setting. No radiology studies performed this visit Discharge Plan Discharge Patient Disposition: Home Clinical Impression: Allergic reaction, Dermatitis Condition: Stable Prescriptions: New prednisone 20 mg tablet 60 mg PO DAILY 5 Days Qty: 15 0RF hydroxyzine HCl 25 mg tablet 25 mg PO BID PRN (Reason: anxiety) Qty: 30 0RF No Action (DME) blood-glucose meter [WistoneTouch Ultra2 Meter] Misc See Rx Instructions .ROUTE .MEDSUPPLY Qty: 1 Rx Instructions: As directed Ozempic 1 mg/dose (4 mg/3 mL) pen injector 1 mg SUBCUT .weekly 90 Days Qty: 9 3RF Rx Instructions: 340B plan if possible atorvastatin [Lipitor] 40 mg tablet 40 mg PO DAILY Qty: 90 3RF losartan 25 mg tablet 25 mg PO DAILY 30 Days Qty: 30 5RF acyclovir 400 mg tablet 400 mg PO BID Qty: 60 11RF (DME) OneTouch Ultra Test Strip See Rx Instructions .ROUTE .MEDSUPPLY Qty: 100 3RF Rx Instructions: As directed, check sugars once daily, sometimes fasting, sometimes one hour post meal (DME) lancets [OneTouch Delica Plus Lancet] 30 gauge misc See Rx Instructions .ROUTE .MEDSUPPLY Qty: 100 0RF Rx Instructions: As directed metformin 500 mg tablet 500 mg PO BID terbinafine HCl 250 mg tablet 250 mg PO DAILY Qty: 30 2RF citalopram 40 mg tablet 40 mg PO DAILY Qty: 90 3RF alprazolam 0.25 mg tablet 0.25 mg PO TID PRN (Reason: anxiety) Qty: 90 0RF carvedilol 12.5 mg tablet 12.5 mg PO BID Qty: 180 3RF Discharge Orders: Discharge ED (Routine); Ordered 08/27/23 Ordered By: Renetta Mora Referrals: Francis Peterson, DIRECTOR BUSINESS [Primary Care Provider] - Discharge Diet: Usual diet Discharge Activity: Resume usual activity Patient Instructions: Urticaria (ED), General Allergic Reaction (ED) Activity Restrictions/Additional Instructions: Thank you for choosing [facility] for your healthcare needs today. Please realize this is an emergency room and that we are providing you with a medical screening exam and this may not be complete and all inclusive of all the testing and or work up that you may need to determine your ailment or severity of your illness. You have been screened and evaluated and felt safe for discharge. Health conditions do change or evolve sometimes and as such it is important that you follow up with your Primary Doctor to be re checked, 3-5 days is a general good time frame for follow up. You are always welcome to return to the ED for re assessment if your symptoms are worsening or you have new concerns Coding Level of Care Code ED Sand Carrier for Deepika Torre
[2023-08-27 09:15] VITALS: BP 144/81; PULSE 72; RESP 17; O2SAT 96
== END 2023-08-27 09:19 | disposition home or self-care (01) ==
PROVIDERS: Emergency Provider Emergency Medicine; PCP Clinical Nurse Specialist Adult Health
DX: L30.9 Dermatitis, unspecified (principal); T78.40XA Allergy, unspecified, initial encounter; Z79.85 Long-term (current) use of injectable non-insulin antidiabetic drugs; Z79.84 Long term (current) use of oral hypoglycemic drugs; Z87.891 Personal history of nicotine dependence; E11.9 Type 2 diabetes mellitus without complications; I10 Essential (primary) hypertension; X58.XXXA Exposure to other specified factors, initial encounter
CPT/HCPCS: 99283

== ENCOUNTER → 2023-08-30 07:58 | Outpatient (BNVA) | payer MEDICARE, SELFPAY | PROVIDERS: PCP Clinical Nurse Specialist Adult Health; Visit Provider Orthopaedic Surgery | DX: Z09 Encounter for follow-up examination after completed treatment for conditions other than malignant neoplasm (principal); M48.062 Spinal stenosis, lumbar region with neurogenic claudication | CPT/HCPCS: 99214 ==

== ENCOUNTER → 2023-11-06 08:29 | Outpatient (BNVA) | payer MEDICARE, SELFPAY | PROVIDERS: PCP Clinical Nurse Specialist Adult Health; Visit Provider Clinical Nurse Specialist Adult Health | DX: I10 Essential (primary) hypertension (principal); E11.628 Type 2 diabetes mellitus with other skin complications; E78.00 Pure hypercholesterolemia, unspecified | CPT/HCPCS: 80053; 80061; 83036; 85025 ==

== ENCOUNTER → 2023-11-20 08:13 | Outpatient (BNVA) | payer MEDICARE, SELFPAY | PROVIDERS: PCP Clinical Nurse Specialist Adult Health; Visit Provider Student in an Organized Health Care Education/Training Program | DX: M16.11 Unilateral primary osteoarthritis, right hip (principal); E11.628 Type 2 diabetes mellitus with other skin complications; Z79.84 Long term (current) use of oral hypoglycemic drugs | CPT/HCPCS: 73523; 99214 ==

== ENCOUNTER → 2023-12-05 08:33 | Outpatient (BNVA) | payer MEDICARE, SELFPAY | PROVIDERS: PCP Clinical Nurse Specialist Adult Health; Visit Provider Podiatrist Foot & Ankle Surgery | DX: E11.8 Type 2 diabetes mellitus with unspecified complications (principal); E11.40 Type 2 diabetes mellitus with diabetic neuropathy, unspecified; L60.3 Nail dystrophy; B35.1 Tinea unguium; Z79.84 Long term (current) use of oral hypoglycemic drugs | CPT/HCPCS: 99213 ==

== ENCOUNTER → 2024-01-01 07:59 | Outpatient (BNVA) | payer MEDICARE, SELFPAY | PROVIDERS: PCP Clinical Nurse Specialist Adult Health; Visit Provider Family Medicine | DX: Z01.818 Encounter for other preprocedural examination (principal); I49.8 Other specified cardiac arrhythmias | CPT/HCPCS: 80048; 81003; 85025; 93005 ==

== ENCOUNTER 2024-01-02 09:29 | Outpatient (CLI) | payer MEDICARE, SELFPAY ==
--- NOTE | 2024-01-02 09:30 | CT_ITS ---
WS: [id number] CT RIGHT hip, noncontrast HISTORY: RIGHT knee: Very slight lateral subluxation of the patella. No fracture or displacement. No joint effusion. TECHNIQUE: Protocol for [facility] total hip replacement has been obtained. This includes axial imaging thr ough the RIGHT hip, RIGHT knee. DLP: 845.17 mGy COMPARISON: Radiograph 11/20/2023 Moderate narrowing of the RIGHT hip joint and mild narrowing of the LEFT hip joint. Osteophytic ridgi ng around the RIGHT femoral head narrowing the joint space. No fractures or dislocation. No free flui d in the pelvis. CT/CT hip RT [facility] [id number] IMPRESSION: CT imaging provided for [facility] robotic total hip replacement.
== END 2024-01-02 09:30 | disposition home or self-care (01) ==
LOC: RAD 09:30
PROVIDERS: PCP Clinical Nurse Specialist Adult Health; Visit Provider Student in an Organized Health Care Education/Training Program
DX: Z01.818 Encounter for other preprocedural examination (principal); M16.11 Unilateral primary osteoarthritis, right hip; M25.751 Osteophyte, right hip
CPT/HCPCS: 73700

== ENCOUNTER 2024-01-14 15:38 | Observation (INO) | payer MEDICARE, SELFPAY ==
[2024-01-14] VITALS (18 sets, daily range): BP systolic 92–166; BP diastolic 45–87; PULSE 68–80; RESP 8–18; TEMP 36.1–36.9; O2SAT 92–98; BMI 36.0
--- NOTE | 2024-01-14 10:01 | P.HP_ITS ---
Same Day Surgery H&P Indication for Procedure/HPI DATE OF PROCEDURE: January 14, 2024 CHIEF COMPLAINT/INDICATIONFOR SURGICAL PROCEDURE: Right hip degenerative joint disease PREOP DIAGNOSIS: Right hip degenerative joint disease PLANNED PROCEDURE: Operation Date: 01/14/24 11:35 Proposed Procedures p Sumit Robot Total Hip Arthroplasty- posterior(Right) - Dev Harvey, DO Medications/Allergies* Home Medications Medication Instructions Recorded Confirmed Type blood-glucose meter (OneTouch #1 ea 11/09/21 12/05/23 History Ultra2 Meter) metformin 500 mg tablet 500 mg PO BID 01/10/24 01/14/24 History Allergies/Adverse Reactions Allergy/AdvReac Type Severity Reaction Status Date / Time Sulfa (Sulfonamide Allergy Unknown hives, Verified 01/14/24 09:25 Antibiotics) itching terbinafine Allergy rash Verified 01/14/24 09:25 hydrochlorothiazide AdvReac Mild orthostatis Verified 01/14/24 09:25 i Pertinent History/Comorbid Conditions* Medical History (Updated 11/06/23 @ 08:19 by Francis Peterson NP) Diabetes Hypertension Hypercholesterolemia Anxiety Depression Obesity Arthritis Herpes labialis taking acyclovir Eczema Palpitations with regular cardiac rhythm Elevation of cardiac enzymes Surgical History (Updated 05/13/19 @ 16:22 by Delmi Venegas MD) History of appendectomy S/P dilatation and curettage History of endometrial ablation H/O left knee surgery Family History (Updated 05/25/20 @ 10:18 by Jena Alcala RN) Diabetes Father CAD (coronary artery disease) Mother Father Son Dementia Mother Hyperlipidemia Family history of premature coronary artery disease Lung disease Mother Cancer Mother Hypertension Denies family history of Clotting disorder Chronic kidney disease (CKD) Suicide Anesthesia complication Bleeding disorder Stroke Social History Smoking and tobacco/nicotine status: never used tobacco/nicotine Alcohol intake: never Substance/Drug Use: never Caregiver/support person: Yes Lives independently: Yes Pertinent Exam Findings alert, oriented x 3, operative site marked and procedure specific exam findings Please refer to detailed orthopedic examination on 11/20/2023:: Right hip examination: ROM: IR 5 degrees, ER 30 degrees Pain with extreme hip flexion and IR TTP over groin TTP over trochanter bursa TTP over lumbar region TTP over gluteal region TTP over SI joint Recommendations Surgery/Procedure today Other Plans: Patient here today to proceed with right total hip arthroplasty?Sumit robotic assisted. Plan will be through a posterior approach. At this point in time we talked about her treatment options in detail she is cleared the preoperative clearance process. We will recheck her urine this morning as she is already been treated for her positive urine she denies any symptomatology today no burning or increased frequency or other urinary symptoms overall she is doing well no change in her health she is clear the preoperative clearance process is ready proceed with surgical intervention today. All questions have been answered she understands the ins and outs procedure risk benefits complication alternatives surgery and through shared decision make elects proceed with surgical intervention. All questions answered. Coding Level of Care Code Acute Code for [facility]
[2024-01-14 10:14] LABS: Basophils # 0.1 10^3/uL (0.0-0.1); Basophils % 0.8 %; Eosinophils # 0.1 10^3/uL (0.0-0.8); Hematocrit 41.1 % (36-47); Lymphocytes # 2.3 10^3/uL (0.8-4.8); Lymphocytes % 23.7 %; Mean Corpuscular HGB Conc 32.8 g/dL (30-55); Mean Corpuscular Hemoglobin 29.9 pg (27-33); Mean Corpuscular Volume 90.9 fl (85-98); Mean Platelet Volume 9.2 fL (7.4-10.4); Monocytes # 0.7 10^3/uL (0.2-0.9); Monocytes % 7.1 %; Nucleated Red Blood Cells % 0 %; Platelet Count 304 10^3/cmm (157-399); Red Blood Count 4.52 10^6/uL (3.85-5.65); Red Cell Distribution Width 12.3 % (12.1-15.1); White Blood Count 9.71 10^3/uL (3.29-11.43)
--- NOTE | 2024-01-14 10:21 | P.ANESASSM_ITS ---
Pre-Anesthetic Assessment Height/Weight: Height 5 ft 4 in Weight 210 lb Temp Pulse Resp BP Pulse Ox O2 Del Method 97.8 F 73 18 166/87 94 Room Air 01/14/24 09:39 01/14/24 09:39 01/14/24 09:39 01/14/24 09:39 01/14/24 09:39 01/14/24 09:39 Preop Diagnosis: Right hip degenerative joint disease Operation Date: 01/14/24 11:35 Proposed Procedures p Sumit Robot Total Hip Arthroplasty- posterior(Right) - Dev Berks, DO Was Beta Bereket taken within 24 hours: Yes Was Clonidine taken within 24 hours: N/A Last intake: Intake Last Liquid Date 01/13/24 Last Liquid Time 18:00 Last Solid Date 01/13/24 Last Solid Time 18:00 Social No alcohol and No tobacco Quit smoking 10 years ago Exam alert, oriented x 3, clear to auscultation bilaterally and regular rate & rhythm Airway Submandibular: within normal limits Cervical ROM: within normal limits Mallampati: Class III Dentition: full Anesthetic Plan ASA status: 2 Anesthesia: MAC and Regional (specify below) Other: No prior issues with anesthesia NPO since yesterday evening History of hypertension on losartan and carvedilol. BP taken today BMI 36 Type 2 diabetes on semaglutide, taken 12/31/2023 Labs 01/14/2024 reviewed and acceptable for procedure Lumbar disc stenosis EKG sinus rhythm Plan for spinal anesthetic Medications/Allergies Home Medications Medication Instructions Recorded Confirmed Last Taken Type blood-glucose meter (OneTouch #1 ea 11/09/21 12/05/23 Unknown History Ultra2 Meter) blood sugar diagnostic (OneTouch #100 ea 05/23/22 12/05/23 Unknown Rx Ultra Test strips) lancets 30 gauge (OneTouch Delica #100 ea 05/23/22 12/05/23 Unknown Rx Plus Lancet) citalopram 40 mg tablet 40 mg PO DAILY #90 tabs 04/17/23 01/14/24 01/13/24 Rx acyclovir 400 mg tablet 400 mg PO BID #60 tabs 05/10/23 01/14/24 01/14/24 05:00 Rx carvedilol 12.5 mg tablet 12.5 mg PO BID #180 tabs 08/24/23 01/14/24 01/14/24 05:00 Rx losartan 25 mg tablet 25 mg PO DAILY 90 days #90 tabs 11/20/23 01/14/24 01/13/24 Rx alprazolam 0.25 mg tablet 0.25 mg PO TID PRN anxiety #90 tabs 12/11/23 01/14/24 01/13/24 Rx atorvastatin 40 mg tablet (Lipitor) 40 mg PO DAILY #90 tabs 12/11/23 01/10/24 01/10/24 Rx semaglutide 1 mg/dose (4 mg/3 mL) 1 mg (0.75 mL) SUBCUT .weekly 3 01/07/24 01/10/24 12/31/23 Rx subcutaneous pen injector (Ozempic) months #9 mL metformin 500 mg tablet 500 mg PO BID 01/10/24 01/14/24 01/12/24 History Allergies Allergy/AdvReac Type Severity Reaction Status Date / Time Sulfa (Sulfonamide Allergy Unknown hives, Verified 01/14/24 09:25 Antibiotics) itching terbinafine Allergy rash Verified 01/14/24 09:25 hydrochlorothiazide AdvReac Mild orthostatis Verified 01/14/24 09:25 i PFSH Anesthesia Medical History Diabetes Hypertension Hypercholesterolemia Anxiety Depression Obesity Arthritis Herpes labialis taking acyclovir Eczema Palpitations with regular cardiac rhythm Elevation of cardiac enzymes Surgical History History of appendectomy S/P dilatation and curettage History of endometrial ablation H/O left knee surgery Family History Mother CAD (coronary artery disease) Cancer Dementia Lung disease Father CAD (coronary artery disease) Diabetes Son CAD (coronary artery disease) Other Family history of premature coronary artery disease Hyperlipidemia Hypertension Denies family history of Clotting disorder Chronic kidney disease (CKD) Suicide Anesthesia complication Bleeding disorder Stroke Social History Smoking and tobacco/nicotine status: never used tobacco/nicotine Alcohol intake: never Substance/Drug Use: never Caregiver/support person: Yes Lives independently: Yes Data Anesthesia 01/14/24 09:50 01/14/24 09:50 Short CBC 01/14/24 Range/Units 09:50 WBC 9.71 (3.29-11.43) 10^3/uL Hgb 13.50 (11.27-16.99) g/dL Hct 41.1 (36-47) % MCV 90.9 (85-98) fl Plt Count 304 (157-399) 10^3/cmm Neut % (Auto) 67.0 % Neut # (Auto) 6.50 (1.8-7.7) 10^3/uL Cardiac Studies: 2 Holter Monitor 12/15/19
[2024-01-14 10:26] LABS: Anion Gap 14.6 (5-19); Blood Urea Nitrogen 11 mg/dL (8-23); Calcium 8.7 mg/dL (8.5-10.5); Carbon Dioxide 26 mmol/L (22-29); Chloride 104 mmol/L (98-107); Creatinine Clr Calc Pharmacy 107.4495; Glucose 129 mg/dL (65-115); Osmolality Calculated 291 mOsm/kg (285-295); Potassium 4.6 mmol/L (3.5-5.1); Sodium 140 mmol/L (136-145)
[2024-01-14] MEDS: lactated ringers 500 ML IV (10:29)
[2024-01-14 10:30] LABS: Bilirubin Urine Negative (Negative); Blood Urine Negative (Negative); Glucose Urine UA Negative (Normal); Ketones Urine Negative (Negative); Leukocyte Esterase Urine Negative (Negative); Nitrate Urine Negative (Negative); Protein Urine Negative (Negative); Specific Gravity, Urine 1.022 (1.005-1.030); Urine Appearance Clear (CLEAR); Urine Color Yellow (Yellow); pH Urine 6.5 (5-7)
[2024-01-14] MEDS: acetaminophen 1,000 MG/100 ML PIGGYBACK 400 MG IV ×3 (10:30→23:11)
[2024-01-14] MEDS: ketorolac 30 mg/mL INJ IVP (10:31)
[2024-01-14] MEDS: scopolamine 1.5 Patch 1 PATCH TRANSDERMA (10:31)
[2024-01-14 10:36] LABS: Add Urine Microscopic? YES; Bacteria Urine None Seen /hpf; Squamous Epithelial Cell Urine 0-5 /hpf (0-5); WBC Urine 0-5 /hpf (0-5)
[2024-01-14 10:58] LABS: Glucose Point of Care 130 mg/dL (70-110)
[2024-01-14] MEDS: sodium chloride 0.9% 1,000 ML 30 ML IV (11:03)
[2024-01-14] MEDS: ceFAZolin 2,000 MG in sodium chloride 0.9% (plus) 50 ML 100 MG IV ×2 (11:50→20:45)
[2024-01-14] MEDS: tranexamic acid 1,000 mg/10mL SDV 1000 MG IV (12:38)
[2024-01-14] MEDS: vancomycin 1,000 MG SDV 1000 MG XX ×2 (12:56→14:05)
--- NOTE | 2024-01-14 14:18 | XRR_ITS ---
PROCEDURE INFORMATION: Exam: XR Right Hip Exam date and time: 01/14/2024 2:41 PM Age: 63 years old Clinical indication: Device placement; Other: Nelsy; Prior surgery; Surgery date: Post-operative (0-2 days); Additional info: Post op nelsy, do in pacu TECHNIQUE: Imaging protocol: Radiologic exam of the right hip. Views: 1 view hip with pelvis when performed. COMPARISON: CT hip RT [facility] [id number] 01/02/2024 9:47 AM FINDINGS: Bones/joints: There is good anatomic alignment of the right hip arthroplasty. Stable moderate chronic osteoarthritic changes of the left hip. The iliac bones, sacrum and pubic rami appear intact. Soft tissues: Unremarkable. XR/XR hip RT 2-3V wo/w pel* [id number] IMPRESSION: 1. Good anatomic alignment of the right hip arthroplasty. 2. Stable osteoarthritic changes of the left hip.
--- NOTE | 2024-01-14 14:31 | P.BOP_ITS ---
Date of Procedure: [January 14, 2024] Surgeon: [Dr. Childers DO] Retail Warehouse Supervisor(s): [Kevin Childers PA-C] Procedure(s) performed: [Right total hip arthroplasty with Sumit robotic assist.] Findings of the procedure(s): [Right hip degenerative joint disease. procedure went well and is planned.] Estimated blood loss: 250 mL Specimen(s) removed: [Femoral head] Post-operative diagnosis: [Right hip degenerative joint disease]
--- NOTE | 2024-01-14 14:33 | PM.PACU ---
PACU note Narrative: Patient is a 63-year-old female just underwent a right total hip arthroplasty. Pt transferred to PACU in stable condition. Dressing is dry. pt is awake and alert. pt can wiggle toes and plantarflex and dorsiflex foot. Distal pulses are palpable toes are warm and well-perfused. Cap refill is normal and under 2 seconds. Unable to further assess sensation to foot or motion in the leg due to residual anesthetic. pain is controlled. Exam: awake Disposition: admitted
--- NOTE | 2024-01-14 15:43 | ANE.PACU2 ---
Inpatient post-anesthesia follow up: Airway intact: Yes Vital signs: Temperature 97.9 F Pulse Rate 78 Respiratory Rate 17 Blood Pressure 116/74 Pulse Oximetry 95 Oxygen Delivery Me thod Room Air Oxygen Flow Rate Fraction of Inspir ed Oxygen Hydration adequate: Yes Nausea and vomiting: No Pain level: 1 Mental status: Baseline
[2024-01-14] MEDS: lactated ringers 1,000 ML 100 ML IV (16:27)
--- NOTE | 2024-01-14 17:10 | P.OP_ITS ---
Operative Report Date of procedure: January 14, 2024 Surgeon: Dev Childers DO Equalizing Saw Operator: Kevin Childers PA-C: PA was necessary for assistance in this case with leg positioning, reductions, trailing, retraction and protection of neurovascular structures as well as assistance in implantation wound closure and dressing application. Procedure: Preop Diagnosis?Right hip degenerative joint disease Post-op diagnosis: Right hip degenerative joint disease Procedure done: Right total hip arthroplasty?robotic assisted Sumit?posterior?approach Implants: Darwin total hip arthroplasty implants 50 mm cluster hole acetabular shell 6.5 mm x (20 & 15mm) acetabular screw Alpha code D MDM cementless metal liner [employer] Femoral stem size #3 high offset Alpha code D MDM +0 mm head Surgeon: Dev Childers DO Estimated blood loss: 250 mL IV fluids: 1500 mL Urine output: 200 mL Complications: None Condition: stable Disposition: floor Brief History: Patient's been seen and worked up by myself in the outpatient setting and findings consistent with Right hip degenerative joint disease. Pt has failed conservative treatment this is causing severe pain and decreased activity. We talked about pt treatment options as far as nonoperative and operative intervention. pt ultimately through shared decision-making would like to proceed with a Right total hip arthroplasty. we detailed out risk benefits complications alternatives to surgical and nonsurgical treatment options. Understanding pt risks for surgery pt elects to proceed with Right total hip arthroplasty robotic assisted Sumit utilizing a?posterior?approach. All questions answered. Pt elects proceed with surgery today. Procedure: Patient was seen evaluate in preoperative holding area.? Consent was reviewed and signed with patient.? Correct extremity was then marked.? Patient seen evaluate by anesthesia department once cleared for surgery pt was taken back to the operative suite.? Patient underwent spinal anesthesia per the anesthesia department.? This point time pt was then placed on the operative suite and table.? Pt was then placed in lateral decubitus patient worked with the Right hip up.? Patient was secured in the lateral decubitus position with pegboard. All bony prominences well-padded he was properly secured to the bed.? At this point time the Right lower extremity was then prepped and draped in standard orthopedic fashion with care not to drape out the iliac wing for pelvic array placement.? Final timeout performed.? Patient received appropriate preoperative antibiotics. Started off with establishment of my pelvic array pins.? A small longitudinal incision was made directly over the iliac wing.? Sharp scalpel excision through skin and subcutaneous tissue directly onto bone.? Next I then loaded my pelvic pin.? This was then drilled through the iliac wing corridor with excellent fixation.? Next I then loaded the guide which was placed directly onto bone and then subsequently placed 2 more pins to secure fixation.? Next the pelvic array was then sent had excellent visualization with the Sumit robot and was secured. EKG pad was placed on the distal lateral aspect of the femur and sterile aseptic technique and use as my distal reference point. Next I proceeded with my standard?posterior?approach.? Sharp scalpel through skin and subcutaneous tissue this was centered over the greater trochanter.? I then utilized a Flores elevator over the gluteus nydia fascia.? Next the fascia was then split longitudinally with bipolar electrocautery.? Next a Charnley retractor was then placed.? All bone was then placed into the abductors.? A standard full-thickness release of the piriformis and the short external rotators along with the capsule to grade 1 full thick sleeve for later repair was then placed straight down to the lesser trochanter.? Lesser trochanter was then subsequently identified.? Prior to dislocating the hip we then placed our greater trochanter femur checkpoint.? We marked our appropriate checkpoint for referencing on pelvic array.? At this point in time we then established both of our checkpoints as well as referencing for leg lengths I utilized the EKG pad as my distal reference point. The legs were marked and traced to have appropriate position on the drapes to allow for accurate reading.? Preoperative leg lengths set. Once this was then established I then proceeded with dislocation of the femoral head.? At this point Hohmann's were then placed superiorly and inferiorly along the femoral neck..? The sciatic nerve was protected throughout this case.? At this point time I then utilized the Sumit robot and referencing point to reference different aspects along the femoral head and neck for my appropriate neck length.? These were referenced on the inferior mid substance as well as up into the superior shoulder of the femoral neck.? This marked my oscillating saw was used to make my femoral neck cut.? Femoral head was then removed. Next the leg was placed in appropriate position and my anterior and?posterior?acetabular retractors then placed.? Next I excised the labrum and then remove the pulvinar.? I did do a small release of the inferior capsule which was severely taut to allow for easier placement of my reamers as well as reduction.? Acetabulum was thoroughly irrigated. At this point in time keeping my retractors in place I subsequently loaded up the [employer] robot for my acetabular reaming.?? Next I then set my 50 reamer under the [employer] robot and subsequently held this with appropriate preplanned preop planned version of 40 degrees of abduction angle as well as 20 degrees of anteversion.? This preoperative plan was then subsequently made to accommodate for ranges of motion of impingement ?that was assessed preoperatively utilizing the [employer] robotic software technology. I then subsequently reamed this to the appropriate depth with 50mm reamer.? We opened up the acetabular shell clusterhole of the 50 mm Darwin this was then loaded onto my impacting system and then I subsequently impacted this to appropriate depth.? This was then removed from the robot and I used the [employer] probe at the center to confirm on the CT scan?that this was down on bone which it was.? Next I then drilled and placed 2 acetabular screws with excellent fixation these were drilled and measured to be 20 & 15mm this was in the?posterior?superior aspect of the acetabulum had excellent bite and fixation.? The cup was solid and had excellent press-fit fixation. next, opened the alpha code D MDM cementless liner then subsequently placed in appropriate position and impacted into place.? I then placed a sponge into the acetabulum to protect the liner while my femur preparation was performed.? At this point time I then utilized a small rongeur to clear off the shoulder of the femoral neck to clear out the soft tissue envelope for my box osteotome.? Next box osteotome was used a canal finder was placed as well as a lateral lysing rattail rasp.? Once I was appropriately lateralized I then sequentially broached up to a size 3 femoral stem insignia? This was impacted to appropriate depth.? This point I loaded a standard size neck and subsequently reduced the hip.? At this point in time the hip was taken through range of motion before evaluating with the robot on leg lengths.? Patient appeared to have to have satisfactory leg lengths clinically.? The hip was taken through range of motion and had excellent stability with hip flexion and internal rotation with no evidence of instability had an appropriate shuck.? This point time utilized the Sumit probe from our femur checkpoint down to her distal checkpoint. Satisfied with this trial implants, at this point I dislocated the hip and then called for my final implants with excellent stability in all planes.? Opened up a size 3 femoral griffin insigna high offset.? My trials were then removed and then subsequently impacted my final griffin ins igna size 3 high offset stem to the same level.? This point in time I trialed up to a +0 mm neck length which helped match with Sumit robotic assistance had appropriate leg lengths comparative to the contralateral hip and this was confirmed clinically as well as had excellent stability I felt as though this was best combination with leg lengths being equal as well as with stability and elected for the final +0 mm MDM femoral head. Final MDM femoral head component was then opened and the trunnion was dried and this was impacted with excellent fixation and the hip was subsequently reduced.? We measured our final leg lengths which were appropriate patient had excellent stability in all ranges of motion.? This point time a robotic pins and checkpoints were removed.? I remove the femur checkpoint as well as my pelvic array and iliac wing pins.? Appropriate counts were then made.? This point time thoroughly irrigated the wound bed with pulse lavage.? Vancomycin powder was then sprinkled into the wound bed.? I then performed a standard capsular and external rotator repair utilizing #5 Ethibond and this was tied and repaired through bone tunnels hip, sciatic nerve was protected throughout this portion of the case. Was then kept in abduction external rotation and subsequently closed the fascial layer with Ethibond suture as well as running strata fix suture.? I then closed the deep subcutaneous layer as well as superficial subcutaneous layer with running strata fix suture as well as 3-0strata fix for skin.? Prineo glue dressing was then placed over the skin.? I then irrigated the pelvic array pin site.? There is were then closed with interrupted 0, 2-0 Vicryl suture and Monocryl as well as Prineo glue for the skin.? Incisions were then covered with eddy and Silverlon dressing.? Patient was awakened from anesthesia and taken to PACU in stable condition Disposition: Patient taken to PACU in stable condition.? Patient will receive appropriate discharge instructions as well as DVT prophylaxis and pain medication.? Patient will be admitted to the floor for observation should be evaluated by the internal medicine team for medical management.? Patient received appropriate DVT prophylaxis as well as pain medication PT/OT weightbearing as tolerated Right lower extremity with?posterior?hip precautions, Postoperative Abx and TXA.? We will follow-up with patient in the office in 2 weeks.? Patient understands agrees with current plan.? All questions answered.
[2024-01-14] MEDS: atorvastatin 40 mg Tablet PO (17:56)
[2024-01-14] MEDS: chlorhexidine gluconate 0.12% Btl 473 mL 30 ML MUCOUS MEM ×2 (17:56→20:47)
[2024-01-14] MEDS: tranexamic acid 1,000 MG/100 ML PREMIX 600 MG IV (17:56)
[2024-01-14] MEDS: calcium carb-vit d 600mg/400unit 1 Tablet 1 EACH PO (17:56)
[2024-01-14] MEDS: iron polysaccharide complex 150 mg Capsule PO (17:57)
[2024-01-14] MEDS: sennosides-docusate Tablet 2 TAB PO (17:57)
[2024-01-14] MEDS: mupirocin oint 22 gm 1 APPLIC NASAL (17:58)
[2024-01-14] MEDS: oxyCODONE 5 mg IR Tab/Cap PO (20:44)
[2024-01-14] MEDS: ondansetron 2 mg/ML SDV 2 mL 4 MG IVP (20:45)
[2024-01-15] VITALS (10 sets, daily range): BP systolic 103–104; BP diastolic 65–67; PULSE 71–75; RESP 16–17; TEMP 37.1–37.2; O2SAT 90–93
[2024-01-15] MEDS: HYDROmorphone 1 mg/mL INJ 1 mL 0.5 MG IVP ×2 (01:37→05:51)
[2024-01-15] MEDS: ceFAZolin 2,000 MG in sodium chloride 0.9% (plus) 50 ML 100 MG IV ×2 (03:25→11:59)
[2024-01-15 05:33] LABS: Basophils % 0.4 %; Eosinophils % 0.3 %; Hematocrit 31.8 % (36-47); Lymphocytes # 1.3 10^3/uL (0.8-4.8); Lymphocytes % 11.8 %; Mean Corpuscular HGB Conc 32.4 g/dL (30-55); Mean Corpuscular Hemoglobin 30.2 pg (27-33); Mean Corpuscular Volume 93.3 fl (85-98); Mean Platelet Volume 9.4 fL (7.4-10.4); Monocytes # 0.8 10^3/uL (0.2-0.9); Monocytes % 6.7 %; Neutrophils % 80.2 %; Nucleated Red Blood Cells % 0 %; Platelet Count 237 10^3/cmm (157-399); Red Blood Count 3.41 10^6/uL (3.85-5.65); Red Cell Distribution Width 12.3 % (12.1-15.1); White Blood Count 11.34 10^3/uL (3.29-11.43)
[2024-01-15 05:56] LABS: Anion Gap 11.7 (5-19); Blood Urea Nitrogen 13 mg/dL (8-23); Calcium 8.5 mg/dL (8.5-10.5); Carbon Dioxide 26 mmol/L (22-29); Chloride 103 mmol/L (98-107); Creatinine Clr Calc Pharmacy 92.0996; Glomerular Filtration Rate 84.5 mL/min (90-130); Glucose 136 mg/dL (65-115); Osmolality Calculated 284 mOsm/kg (285-295); Potassium 4.7 mmol/L (3.5-5.1); Sodium 136 mmol/L (136-145)
[2024-01-15 06:19] LABS: Glucose Point of Care 153 mg/dL (70-110)
[2024-01-15] MEDS: oxyCODONE 5 mg IR Tab/Cap PO ×2 (07:50→14:14)
[2024-01-15] MEDS: acetaminophen 1,000 MG/100 ML PIGGYBACK 400 MG IV (07:53)
[2024-01-15] MEDS: iron polysaccharide complex 150 mg Capsule PO (08:10)
[2024-01-15] MEDS: insulin lispro 100 unit/1 mL SUBCUT ×2 (08:10→11:59)
[2024-01-15] MEDS: chlorhexidine gluconate 0.12% Btl 473 mL 30 ML MUCOUS MEM (08:52)
[2024-01-15] MEDS: mupirocin oint 22 gm 1 APPLIC NASAL (08:53)
[2024-01-15] MEDS: sennosides-docusate Tablet 2 TAB PO (08:55)
[2024-01-15] MEDS: apixaban 5 mg Tablet 2.5 MG PO (08:55)
[2024-01-15] MEDS: multivitamin therapeutic Tablet 1 TAB PO (08:55)
[2024-01-15] MEDS: citalopram 20 mg Tablet 40 MG PO (08:55)
[2024-01-15] MEDS: calcium carb-vit d 600mg/400unit 1 Tablet 1 EACH PO (08:56)
--- NOTE | 2024-01-15 09:58 | PC.CHAP ---
Pastoral Care Encounter/Spiritual Assessment Type of Contact [] Declined night nurse visit [] Patient/Family/Request visit [] Outpatient visit [] Follow-up visit [] Physician referral [] Code/Alert [x] Routine visit [] Staff referral [] Actively dying [] Patient sleeping [] Family support [] [] Out of room [] Palliative care [] [] Receiving care in room [] Pre-surgical visit [] Trauma [] Long length of stay [] ICU visit [] Other: Relational/Emotional Strength [x] Patient feels connected with others/family/visitors/staff [] Distress [] Loneliness/isolation [] Abandonment Spirituality of Patient [x] Person of [place] [] Attends Synagogue of their [place] [x] Believes in Prayer [] Reads Bible or Anglican materials [] There are Spiritual issues to be addressed Law Clerk Interventions [x] Prayer [x] Active listening [] Non-anxious presence [x] Spiritual/emotional support [] Crisis/trauma care [] Spiritual counseling [] Bereavement support [] Provided bereavement packet [] Provided Bible/devotional materials [] Provided toy/stuffed animal, coloring book to patient or family member [] Provided Communion [] Anointing/Golden [] Salvation [x] Completed spiritual assessment [] Other: Impact on Illness or Injury [] Angry [] Fearful [] Anxious [] Often cries [] Exhaustion [] Unable to work [] Unable to attend nondenominational [] Unable to walk/stand [] Unable to read [] Unable to drive [] Unable to eat/drink [] Unable to sleep [] Unable to be with family [] Patient intubated [] Other: Summary Time spent with patient 5 min
[2024-01-15 11:06] LABS: Glucose Point of Care 218 mg/dL (70-110)
[2024-01-15] MEDS: ondansetron 2 mg/ML SDV 2 mL 4 MG IVP (11:59)
--- NOTE | 2024-01-15 12:49 | P.CONIM_ITS ---
Providers/Reason For Consult 2 Consulting Physician/Specialty*: Hospitalist Reason for Consult*: Postop care Attending Physician: Dev Childers DO Primary Care Provider: Francis Peterson History of Present Illness History of Present Illness Sharon Villalpando is a 63 year old female status post right total hip arthroplasty hospital service was consulted for postoperative management. Patient is out of bed to chair Hemodynamically stable currently on room air Patient was asking if he could resume her Celexa and atorvastatin Review of Systems 2 Const: Denies: fever(s) Eyes: Denies: change in vision ENMT: Denies: throat pain Card: Denies: swelling of feet/ankles Medications/Allergies Home Medications Medication Instructions Recorded Confirmed Last Taken Type blood-glucose meter (OneTouch #1 ea 11/09/21 01/15/24 Unknown History Ultra2 Meter) blood sugar diagnostic (OneTouch #100 ea 05/23/22 01/15/24 Unknown Rx Ultra Test strips) lancets 30 gauge (OneTouch Delica #100 ea 05/23/22 01/15/24 Unknown Rx Plus Lancet) citalopram 40 mg tablet 40 mg PO DAILY #90 tabs 04/17/23 01/14/24 01/13/24 Rx acyclovir 400 mg tablet 400 mg PO BID #60 tabs 05/10/23 01/14/24 01/14/24 05:00 Rx carvedilol 12.5 mg tablet 12.5 mg PO BID #180 tabs 08/24/23 01/14/24 01/14/24 05:00 Rx losartan 25 mg tablet 25 mg PO DAILY 90 days #90 tabs 11/20/23 01/14/24 01/13/24 Rx alprazolam 0.25 mg tablet 0.25 mg PO TID PRN anxiety #90 tabs 12/11/23 01/14/24 01/13/24 Rx atorvastatin 40 mg tablet (Lipitor) 40 mg PO DAILY #90 tabs 12/11/23 01/10/24 01/10/24 Rx semaglutide 1 mg/dose (4 mg/3 mL) 1 mg (0.75 mL) SUBCUT .weekly 3 01/07/24 01/10/24 12/31/23 Rx subcutaneous pen injector (Ozempic) months #9 mL metformin 500 mg tablet 500 mg PO BID 01/10/24 01/14/24 01/12/24 History Allergies Allergy/AdvReac Type Severity Reaction Status Date / Time Sulfa (Sulfonamide Allergy Unknown hives, Verified 01/14/24 09:25 Antibiotics) itching terbinafine Allergy rash Verified 01/14/24 09:25 hydrochlorothiazide AdvReac Mild orthostatis Verified 01/14/24 09:25 i Current Medications Generic Name Dose Route Start Last Admin Trade Name Aria PRN Reason Stop Dose Admin Atorvastatin Calcium 40 mg 01/14/24 18:00 01/14/24 17:56 Atorvastatin 40 Mg Tablet PO 40 mg DAILY@1800 SON Administration Calcium Carbonate 1 each 01/14/24 18:00 01/14/24 17:56 Calcium Carb-Vit D 600mg/400unit 1 Tablet PO 1 each BID SON Administration Chlorhexidine Gluconate 30 ml 01/14/24 17:00 01/14/24 17:56 Chlorhexidine Gluconate 0.12% Btl 473 Ml MUCOUS MEM 30 ml QID SON Administration Acetaminophen 1,000 mg in 100 mls @ 400 mls/hr 01/14/24 15:54 01/14/24 16:24 Acetaminophen IV 01/15/24 08:08 400 mls/hr Q8H SON Administration Lactated Ringer's 1,000 mls @ 100 mls/hr 01/14/24 15:54 01/14/24 16:27 Lactated Ringers IV 100 mls/hr .Q10H SON Administration Mupirocin 1 applic 01/14/24 18:00 01/14/24 17:58 Mupirocin Oint 22 Gm NASAL 01/19/24 17:59 1 applic BID SON Administration Polysaccharide Iron Complex 150 mg 01/14/24 18:00 01/14/24 17:57 Iron Polysaccharide Complex 150 Mg Capsule PO 150 mg BIDWM SON Administration Senna/Docusate Sodium 2 tab 01/14/24 18:00 01/14/24 17:57 Sennosides-Docusate Tablet PO 2 tab BID SON Administration PFSH Acute 2 PFSH: Medical History Diabetes Hypertension Hypercholesterolemia Anxiety Depression Obesity Arthritis Herpes labialis taking acyclovir Eczema Palpitations with regular cardiac rhythm Elevation of cardiac enzymes Surgical History History of appendectomy S/P dilatation and curettage History of endometrial ablation H/O left knee surgery Family History Mother CAD (coronary artery disease) Cancer Dementia Lung disease Father CAD (coronary artery disease) Diabetes Son CAD (coronary artery disease) Other Family history of premature coronary artery disease Hyperlipidemia Hypertension Denies family history of Clotting disorder Chronic kidney disease (CKD) Suicide Anesthesia complication Bleeding disorder Stroke Social History Smoking and tobacco/nicotine status: never used tobacco/nicotine Alcohol intake: never Substance/Drug Use: never Caregiver/support person: Yes Lives independently: Yes Vitals/I&O/Wt Last Vital Signs Temp 97.8 F 01/14/24 17:15 Pulse 68 01/14/24 17:15 Resp 17 01/14/24 17:15 BP 132/60 01/14/24 17:15 Pulse Ox 95 01/14/24 17:15 O2 Del Method Room Air 01/14/24 17:15 01/14/24 01/14/24 01/14/24 06:59 14:59 22:59 Intake Total 1150 / 1150 720 / 1870 Output Total 450 / 450 600 / 1050 Balance 700 / 700 120 / 820 Weight last 48 hrs Weight 95.254 kg Physical Exam 2 Narrative: Awake and alert Sitting in a chair GCS 15 Nonfocal neuroexam Pleasant above Currently on room air Nonfocal neuroexam Morrison catheter removed Urinary Catheter Management: Morrison: Cath Placed During This Visit: yes Urinary Catheter Date of Insertion: 01/14/24 Urinary Catheter Time of Insertion: 10:10 Data 01/15/24 04:49 01/15/24 04:49 A&P Assessment and plan (1) S/P total right hip arthroplasty: (2) Hypertension: Qualifiers: Hypertension type: primary hypertension Qualified Code(s): I10 - Essential (primary) hypertension (3) Depression: Qualifiers: Depression Type: major depressive disorder Major depression recurrence: single episode Active/Remission status: currently active Major depression episode severity: mild Qualified Code(s): F32.0 - Major depressive disorder, single episode, mild Plan Postop day 1 No postop complication GCS 15 Nonfocal neuroexam [facility] DVT prophylaxis on board Continue Celexa and atorvastatin Morrison cath removed today To work with PT, out of bed to chair She can be discharged once cleared by Dr. Childers Consult Attestations 2 Medical Necessity Statement: As per orthopedics Diagnoses S/P total right hip arthroplasty Z96.641 Primary hypertension I10 Hypertension type: primary hypertension Current mild episode of major depressive disorder without prior episode F32.0 Depression Type: major depressive disorder Major depression recurrence: single episode Active/Remission status: currently active Major depression episode severity: mild
--- NOTE | 2024-01-15 13:28 | P.DS_ITS ---
Discharge Providers Date of Admission: 01/14/24 15:38 Date of Discharge: January 15, 2024 Attending Provider at Admission: Dev Childers DO Attending Provider at Discharge: Dev Childers DO Consults: Hospitalist?Dr. Perales Primary Care Provider: Francis Peterson Diagnoses at Discharge Discharge Diagnosis (1) S/P total right hip arthroplasty: Status: Acute (2) Hypertension: Status: Acute Qualifiers: Hypertension type: primary hypertension Qualified Code(s): I10 - Essential (primary) hypertension (3) Depression: Status: Acute Qualifiers: Active/Remission status: currently active Depression Type: major d epressive disorder Major depression episode severity: mild Major depression recurrence: single episode Qualified Code(s): F32.0 - Major depressive disorder, single episode, mild Reason for Visit Reason for Visit: M16.11 Brief History: Status post right total hip arthroplasty?Sumit robotic assisted posterior approach Hospital Course Hospital Course Patient was brought to the hospital through the preoperative holding area with plan for right total hip arthroplasty for [right] hip dengerative joint disease. Once cleared by anesthesia for surgery subsequently was taken back to the operative suite underwent anesthesia per the anesthesia department and then underwent [right] total hip arthroplasty with Sumit robotic assistance posterior approach without any complications. Patient was then subsequently taken back to PACU in stable condition recovering well. Once recovered, patient was then subsequently admitted to the floor postoperatively. Internal medicine was consulted for medical management assistance. Patient weightbearing as tolerated to the right lower extremity, posterior hip precautions. PT/OT. Pain control. DVT prophylaxis. Postoperative antibiotics and TXA. dressing was change as needed. Internal medicine was on board and appreciate their medical management and assistance. Pt was determined on postoperative day [1 ] the patient was stable for discharge from orthopedic as well as internal medicine standpoint. Patient's labs were monitored daily. Patient will receive appropriate pain medication as well as DVT prophylaxis postoperatively. Appropriate discharge instructions as well. Patient was then discharged in stable condition. Patient will discharge home. Pt will follow-up with Orthopedics in the office in 2 weeks. Patient understands and agrees with current plan. All questions answered. Understands there is any issues or concerns and contact the office. Physical Exam Narrative: Examination right hip: Examination right hip demonstrates dressings on in place is clean dry and intact normal postoperative swelling and tenderness palpation to the right hip. Appropriate leg lengths appreciated. Patient is able to wiggle toes plantarflex and dorsiflex ankle sensations intact to light touch distally. Distal pulses palpable. Compartment soft compressible. Calf soft nontender. Urinary Catheter Management: Morrison: Cath Placed During This Visit: yes Urinary Catheter Date of Insertion: 01/14/24 Urinary Catheter Time of Insertion: 10:10 Discharge Data Studies Completed and Pending Completed Studies During Hospitalization Category Date Time Status XR hip RT 2-3V wo/w pel* [id number] Routine Exams 01/14/24 14:18 Completed Pending at discharge Category Date Time Status Basic Metabolic Panel AM LABS Lab 01/16/24 04:00 Ordered Basic Metabolic Panel AM LABS Lab 01/17/24 04:00 Ordered Complete Blood Count w/Auto AM LABS Lab 01/16/24 04:00 Ordered Complete Blood Count w/Auto AM LABS Lab 01/17/24 04:00 Ordered Radiology Impressions Hip/Pelvis X-Ray 01/14/24 14:18 IMPRESSION: 1. Good anatomic alignment of the right hip arthroplasty. 2. Stable osteoarthritic changes of the left hip. Laboratory Results WBC 11.34 10^3/uL (3.29-11.43) 01/15/24 04:49 RBC 3.41 10^6/uL (3.85-5.65) L 01/15/24 04:49 Hgb 10.30 g/dL (11.27-16.99) L 01/15/24 04:49 Hct 31.8 % (36-47) L 01/15/24 04:49 MCV 93.3 fl (85-98) 01/15/24 04:49 MCH 30.2 pg (27-33) 01/15/24 04:49 MCHC 32.4 g/dL (30-55) 01/15/24 04:49 RDW 12.3 % (12.1-15.1) 01/15/24 04:49 Plt Count 237 10^3/cmm (157-399) 01/15/24 04:49 MPV 9.4 fL (7.4-10.4) 01/15/24 04:49 Neut % (Auto) 80.2 % 01/15/24 04:49 Lymph % (Auto) 11.8 % 01/15/24 04:49 [place] % (Auto) 6.7 % 01/15/24 04:49 Eos % (Auto) 0.3 % 01/15/24 04:49 Baso % (Auto) 0.4 % 01/15/24 04:49 Neut # (Auto) 9.10 10^3/uL (1.8-7.7) H 01/15/24 04:49 Lymph # (Auto) 1.3 10^3/uL (0.8-4.8) 01/15/24 04:49 [place] # (Auto) 0.8 10^3/uL (0.2-0.9) 01/15/24 04:49 Eos # (Auto) 0.0 10^3/uL (0.0-0.8) 01/15/24 04:49 Baso # (Auto) 0.0 10^3/uL (0.0-0.1) 01/15/24 04:49 Nucleated RBC % (auto) 0 % 01/15/24 04:49 Nucleated RBCs # 0.0 /100WBC 01/15/24 04:49 Sodium 136 mmol/L (136-145) 01/15/24 04:49 Potassium 4.7 mmol/L (3.5-5.1) 01/15/24 04:49 Chloride 103 mmol/L (98-107) 01/15/24 04:49 Carbon Dioxide 26 mmol/L (22-29) 01/15/24 04:49 Anion Gap 11.7 (5-19) 01/15/24 04:49 BUN 13 mg/dL (8-23) 01/15/24 04:49 Creatinine 0.7 mg/dL (0.5-0.9) 01/15/24 04:49 GFR Calculation 84.5 mL/min (90-130) L 01/15/24 04:49 Glucose 136 mg/dL (65-115) H 01/15/24 04:49 POC Glucose 218 mg/dL (70-110) H 01/15/24 10:47 Calculated Osmolality 284 mOsm/kg (285-295) L 01/15/24 04:49 Calcium 8.5 mg/dL (8.5-10.5) 01/15/24 04:49 Urine Color Yellow (Yellow) 01/14/24 10:20 Urine Appearance Clear (CLEAR) 01/14/24 10:20 Urine pH 6.5 (5-7) 01/14/24 10:20 Ur Specific [place] 1.022 (1.005-1.030) 01/14/24 10:20 Urine Protein Negative (Negative) 01/14/24 10:20 Urine Glucose (UA) Negative (Normal) 01/14/24 10:20 Urine Ketones Negative (Negative) 01/14/24 10:20 Urine Blood Negative (Negative) 01/14/24 10:20 Urine Nitrate Negative (Negative) 01/14/24 10:20 Urine Bilirubin Negative (Negative) 01/14/24 10:20 Urine Urobilinogen 1.0 mg/dL (Negative) 01/14/24 10:20 Ur Leukocyte Esterase Negative (Negative) 01/14/24 10:20 Urine RBC 6-10 /hpf (0-2) 01/14/24 10:20 Urine WBC 0-5 /hpf (0-5) 01/14/24 10:20 Ur Squamous Epith Cells 0-5 /hpf (0-5) 01/14/24 10:20 Amorphous Sediment Not Reportable 01/14/24 10:20 Urine Bacteria None seen /hpf (NONE) 01/14/24 10:20 Hyaline Casts 0.40 /lpf 01/14/24 10:20 Blood Type O Positive 01/14/24 09:50 Rho(D) Type Rh positive 01/14/24 09:50 Antibody Screen Negative 01/14/24 09:50 Vitals Last Vital Signs Temp 98.7 F 01/15/24 07:29 Pulse 75 01/15/24 13:02 Resp 16 01/15/24 13:02 BP 104/67 01/15/24 07:29 Pulse Ox 93 01/15/24 13:02 O2 Del Method Room Air 01/15/24 13:02 Discharge Plan Discharge Patient Disposition: Home Health Service Condition: Stable Prescriptions: New Eliquis 2.5 mg tablet 2.5 mg PO BID 35 Days Qty: 70 0RF Continued acyclovir 400 mg tablet 400 mg PO BID Qty: 60 11RF citalopram 40 mg tablet 40 mg PO DAILY Qty: 90 3RF carvedilol 12.5 mg tablet 12.5 mg PO BID Qty: 180 3RF losartan 25 mg tablet 25 mg PO DAILY 90 Days Qty: 90 3RF alprazolam 0.25 mg tablet 0.25 mg PO TID PRN (Reason: anxiety) Qty: 90 0RF atorvastatin [Lipitor] 40 mg tablet 40 mg PO DAILY Qty: 90 3RF Ozempic 1 mg/dose (4 mg/3 mL) pen injector 1 mg SUBCUT .weekly 90 Days Qty: 9 3RF Rx Instructions: 340B plan if possible metformin 500 mg tablet 500 mg PO BID Rx Instructions: TAKE 1 TABLET BY MOUTH TWICE DAILY No Action (DME) blood-glucose meter [OneTouch Ultra2 Meter] Misc See Rx Instructions .ROUTE .MEDSUPPLY Qty: 1 Rx Instructions: As directed (DME) OneTouch Ultra Test Strip See Rx Instructions .ROUTE .MEDSUPPLY Qty: 100 3RF Rx Instructions: As directed, check sugars once daily, sometimes fasting, sometimes one hour post meal (DME) lancets [OneTouch Delica Plus Lancet] 30 gauge misc See Rx Instructions .ROUTE .MEDSUPPLY Qty: 100 0RF Rx Instructions: As directed oxycodone 5 mg tablet 5 mg PO Q6H PRN (Reason: pain postop) 7 Days Qty: 28 0RF Discharge Orders: Discharge Order (Routine); Ordered 01/15/24 Ordered By: Dev Childers Referrals: [facility] [Outside] Dev Childers DO [Physician] - 01/29/24 10:00 am Discharge Diet: Regular Discharge Activity: Limit activity as instructed and Use walker/crutches as instructed Patient Instructions: Cephalexin (By mouth), Methocarbamol (By mouth), Oxycodone, Rapid Release (By mouth), Apixaban (By mouth), Acute Wound Care (DC), Total Knee Replacement (GEN), Joint Replacement Stoplight, Opioid Safety, Post Anesthesia Care Activity Restrictions/Additional Instructions: Orthopedic discharge instructions: Preethi Dressing--Keep dressing on and dry. After 3 days you can remove some of the dressing and shower. disconnect battery pack when showering. Preethi dressing will stay on until follow up appt in 2 weeks. The battery pack for the dressing will at 5-7 days. Battery pack can be removed and discarded once batteries . Patient should keep dressings clean dry and intact Okay to shower over dressings if they do become wet these should be removed and new dressings applied Keep incisions clean dry and intact, leave Silverlon bandage dressings on in place for 7 days after that may rinse incisions with warm soapy water pat dry and redress with a dry dressing Weight-bear as tolerated to operative lower extremity Posterior hip precautions as instructed by physical therapy (no hip flexion greater than 90 degrees no internal rotation or crossing legs past midline) Ice as needed for pain and swelling Take pain medication as prescribed Take antibiotic as prescribed Take muscle relaxer as needed for muscle spasms and cramps (recommend taking at night) Take antinausea medication as needed Supplement with Citracal vitamin D for bone health and healing Pain medication can cause constipation. take [id number]-pouphca stool softeners and or MiraLAX. Take blood thinner as prescribed (Eliquis) Follow-up in the orthopedic office in 2 weeks Contact the office for any questions or concerns Discharge Attestations Time Spent in Discharge Care*: less than 30 min Quality Metrics Clinical Quality Measures [ No reported AMI, CVA or VTE this stay] Coding Level of Care Code Acute Code for Chg Fwd Diagnoses S/P total right hip arthroplasty Z96.641 Primary hypertension I10 Hypertension type: primary hypertension Current mild episode of major depressive disorder without prior episode F32.0 Active/Remission status: currently active Depression Type: major depressive disorder Major depression episode severity: mild Major depression recurrence: single episode
== END 2024-01-15 15:23 | disposition home health service (06) ==
LOC: MEDSURG 15:52
PROVIDERS: Physician Assistant; Admitting Provider Student in an Organized Health Care Education/Training Program; PCP Clinical Nurse Specialist Adult Health; Visit Provider Student in an Organized Health Care Education/Training Program
PROC: 8E0Y0CZ Robotic Assisted Procedure of Lower Extremity, Open Approach (ICD-10-PCS; CPT 27130; principal; 2024-01-14 11:35)
DX: M16.11 Unilateral primary osteoarthritis, right hip (principal); I10 Essential (primary) hypertension; E11.9 Type 2 diabetes mellitus without complications; E78.00 Pure hypercholesterolemia, unspecified; F32.A Depression, unspecified; E66.9 Obesity, unspecified; Z68.36 Body mass index [BMI] 36.0-36.9, adult
CPT/HCPCS: 20985; 27130; 36415; 36416; 51702; 73502; 80048; 81001; 82962; 85025; 86850; 86900; 96372; 97116; 97162; 97165; 97530; C1713; C1776; G0378; J0131; J0690; J1171; J1815; J1885; J2250; J2405; J2704; J3010; J3370; J7030; J7120

== ENCOUNTER → 2024-01-29 09:42 | Outpatient (BNVA) | payer MEDICARE, SELFPAY | PROVIDERS: PCP Clinical Nurse Specialist Adult Health; Visit Provider Physician Assistant | DX: Z96.641 Presence of right artificial hip joint (principal) | CPT/HCPCS: 73502; 99024 ==

== ENCOUNTER → 2024-02-06 11:43 | Outpatient (BNVA) | payer MEDICARE, SELFPAY | DX: E11.628 Type 2 diabetes mellitus with other skin complications (principal) | CPT/HCPCS: 80053; 83036 ==

== ENCOUNTER → 2024-03-11 14:09 | Outpatient (BNVA) | payer MEDICARE, SELFPAY | PROVIDERS: Visit Provider Physician Assistant | DX: Z96.641 Presence of right artificial hip joint (principal) | CPT/HCPCS: 73502; 99024 ==

== ENCOUNTER 2024-03-19 15:53 | Outpatient (RCR) | payer MEDICARE, SELFPAY | END 2024-04-01 23:59 | disposition home or self-care (01) | LOC: SPT 15:53 | PROVIDERS: Visit Provider Physician Assistant | DX: Z98.890 Other specified postprocedural states (principal) | CPT/HCPCS: 97110; 97161 ==

== ENCOUNTER 2024-04-02 06:30 | Outpatient (RCR) | payer MEDICARE, SELFPAY | END 2024-05-02 23:59 | disposition home or self-care (01) | LOC: SPT 06:30 | PROVIDERS: Visit Provider Physician Assistant | DX: Z98.890 Other specified postprocedural states (principal) | CPT/HCPCS: 97110 ==

== ENCOUNTER 2024-05-03 06:30 | Outpatient (RCR) | payer MEDICARE, SELFPAY | END 2024-05-14 09:53 | disposition home or self-care (01) | LOC: SPT 06:30 | PROVIDERS: Visit Provider Physician Assistant | DX: Z98.890 Other specified postprocedural states (principal) | CPT/HCPCS: 97110 ==

== ENCOUNTER → 2024-05-06 09:57 | Outpatient (BNVA) | payer MEDICARE, SELFPAY | PROVIDERS: Visit Provider Physician Assistant | DX: Z96.641 Presence of right artificial hip joint (principal); M16.12 Unilateral primary osteoarthritis, left hip | CPT/HCPCS: 73502; 99213 ==

== ENCOUNTER → 2024-05-08 10:09 | Outpatient (BNVA) | payer MEDICARE, SELFPAY | DX: E11.628 Type 2 diabetes mellitus with other skin complications (principal); E78.00 Pure hypercholesterolemia, unspecified | CPT/HCPCS: 80053; 80061; 83036 ==

== ENCOUNTER → 2024-07-18 10:17 | Outpatient (BNVA) | payer MEDICARE, SELFPAY | PROVIDERS: Visit Provider Student in an Organized Health Care Education/Training Program | DX: M16.12 Unilateral primary osteoarthritis, left hip (principal) | CPT/HCPCS: 20610; 77002; J3301; J9999 ==

== ENCOUNTER → 2024-08-05 10:24 | Outpatient (BNVA) | payer MEDICARE, SELFPAY | PROVIDERS: Visit Provider Student in an Organized Health Care Education/Training Program | DX: Z96.641 Presence of right artificial hip joint (principal) | CPT/HCPCS: 73502; 99213 ==

== ENCOUNTER 2024-08-07 08:59 | Outpatient (CLI) | payer MEDICARE, SELFPAY ==
--- NOTE | 2024-08-07 09:02 | MM_ITS ---
WS: [id number] BILATERAL SCREENING DIGITAL TOMOSYNTHESIS MAMMOGRAM WITH CAD HISTORY: SCREENING COMPARISON: 05/21/2023, 05/19/2022 Bilateral CC and MLO views with tomosynthesis and synthetic mammography submitted. Computer aided detection analyzed. Breast composition: The breasts are almost entirely fatty. No suspicious masses, microcalcifications or architectural distortion. RIGHT breast intramammary lymph nodes are stable. MM/MM scr BI tomosynthesis [id number] IMPRESSION: BI-RADS: 2 - Benign. FOLLOW UP: 1 Year Follow-up
== END 2024-08-07 09:00 | disposition home or self-care (01) ==
LOC: RAD 09:00
DX: Z12.31 Encounter for screening mammogram for malignant neoplasm of breast (principal); R92.313 Mammographic fatty tissue density, bilateral breasts; R59.0 Localized enlarged lymph nodes
CPT/HCPCS: 77063; 77067

== ENCOUNTER → 2024-09-04 09:15 | Outpatient (BNVA) | payer MEDICARE, SELFPAY | DX: E11.628 Type 2 diabetes mellitus with other skin complications (principal) | CPT/HCPCS: 80053; 83036; 85025 ==

== ENCOUNTER → 2024-09-09 08:46 | Outpatient (BNVA) | payer MEDICARE, SELFPAY | PROVIDERS: Referring Provider Anesthesiology Pain Medicine; Visit Provider Anesthesiology Pain Medicine | DX: M48.062 Spinal stenosis, lumbar region with neurogenic claudication (principal) | CPT/HCPCS: 99204 ==

== ENCOUNTER → 2024-09-17 14:44 | Outpatient (BNVA) | payer MEDICARE, SELFPAY | PROVIDERS: Visit Provider Anesthesiology Pain Medicine | DX: M79.18 Myalgia, other site (principal); M48.062 Spinal stenosis, lumbar region with neurogenic claudication | CPT/HCPCS: 20553; 99214; J1010; J3490 ==

== ENCOUNTER → 2024-12-09 10:36 | Outpatient (BNVA) | payer MEDICARE, SELFPAY | DX: R05.8 Other specified cough (principal); E11.628 Type 2 diabetes mellitus with other skin complications | CPT/HCPCS: 80053; 83036; 85025; 87426 ==

== ENCOUNTER → 2025-01-13 10:59 | Outpatient (BNVA) | payer MEDICARE, SELFPAY | PROVIDERS: Visit Provider Student in an Organized Health Care Education/Training Program | DX: Z96.641 Presence of right artificial hip joint (principal); Z47.1 Aftercare following joint replacement surgery | CPT/HCPCS: 73502; 99213 ==